=== PATIENT | female | born 1935 | race Caucasian/White ===

== ENCOUNTER 2019-08-01 14:04 | Outpatient (RCR) | payer MEDICARE, OTHER, SELFPAY ==
[2019-05-19 10:43] LABS: Prothrombin Time 22.5 Seconds (11.1-14.7)
[2019-07-01 12:00] LABS: Prothrombin Time 22.1 Seconds (11.1-14.7)
[2019-08-01 14:47] LABS: INR 1.5; Prothrombin Time 17.9 Seconds (11.1-14.7)
== END 2019-08-17 23:59 | disposition home or self-care (01) ==
LOC: ANHLAB 14:04
PROVIDERS: PCP Internal Medicine; Visit Provider Internal Medicine Cardiovascular Disease
DX: Z51.81 Encounter for therapeutic drug level monitoring (principal); I48.91 Unspecified atrial fibrillation; Z79.01 Long term (current) use of anticoagulants
CPT/HCPCS: 36415; 85610

== ENCOUNTER 2019-08-04 12:56 | Outpatient (CLI) | payer MEDICARE, OTHER, SELFPAY ==
--- NOTE | ~2019-08-04 | DEXA_ITS ---
Bone Density Report Name: Sarah Kelly Age: 84 Sex: Female Ethnicity: White Date of : 1935 Indication: postmenopausal osteoporosis; monitoring treatment; parental hip fracture; height loss; hysterectomy; Referring Provider: Tasha Miller Study: Bone densitometry was performed. Exam Date: August 04, 2019 Accession number: [id number] Bone Density: Region BMD T-score Z-score Classification AP Spine (L1-L4) 0.834 -1.9 0.9 Osteopenia Femoral Neck (Left) 0.667 -1.6 0.8 Osteopenia Total Hip (Left) 0.867 -0.6 1.7 Normal Total Hip Bilateral Avg 0.841 -0.8 1.5 Normal Femoral Neck (Right) 0.621 -2.1 0.4 Osteopenia Total Hip (Right) 0.815 -1.0 1.2 Normal World Health Organization criteria for BMD impression classify patients as: Normal (T-score at or above -1.0), Osteopenia (T-score between -1.0 and -2.5), or Osteoporosis (T-score at or below -2.5). 10-year Fracture Risk: FRAX not reported because: Treated for osteoporosis Previous Exams: Region Exam Age BMD T-score BMD Change BMD Change Date g/cm2 vs Baseline vs Previous AP Spine(L1-L4) 08/04/2019 84 0.834 -1.9 0.071(9.3%)# 0.060(7.7%)* 05/14/2015 79 0.774 -2.5 0.011(1.5%)# 0.003(0.4%)# 02/07/2013 77 0.771 -2.5 0.008(1.1%)# 0.004(0.6%)# 10/09/2010 75 0.767 -2.5 0.004(0.5%) 0.025(3.4%)* 10/02/2008 73 0.741 -2.8 -0.021(-2.8%) -0.008(-1.1%) 08/21/2006 71 0.749 -2.7 -0.013(-1.8%) -0.013(-1.8%) 08/02/2004 69 0.763 -2.6 Total Hip(Left) 08/04/2019 84 0.867 -0.6 0.069(8.6%)# 0.044(5.3%)* 05/14/2015 79 0.823 -1.0 0.025(3.1%)# 0.019(2.3%)# 02/07/2013 77 0.805 -1.1 0.006(0.8%)# -0.023(-2.8%)# 10/09/2010 75 0.828 -0.9 0.029(3.7%)* 0.016(2.0%) 10/02/2008 73 0.812 -1.1 0.013(1.7%) -0.006(-0.8%) 08/21/2006 71 0.818 -1.0 0.019(2.4%) 0.019(2.4%) 08/02/2004 69 0.798 -1.2 Total Hip(Right) 08/04/2019 84 0.815 -1.0 0.038(4.9%)# 0.028(3.6%)* 05/14/2015 79 0.787 -1.3 0.010(1.3%)# -0.001(-0.1%)# 02/07/2013 77 0.788 -1.3 0.010(1.3%)# -0.002(-0.2%)# 10/09/2010 75 0.790 -1.2 0.012(1.6%) 0.013(1.7%) 10/02/2008 73 0.776 -1.4 -0.001(-0.2%) 0.014(1.9%) 08/21/2006 71 0.762 -1.5 -0.016(-2.0%) -0.016(-2.0%) 08/02/2004 69 0.778 -1.3 *Denotes significance at 95% confidence level, LSC for AP Spine = 0.022 g/cm2, LSC for Total Hip = 0.027 g/cm2 Clinical Information Provided by Patient: Erica
== END 2019-08-04 12:57 | disposition home or self-care (01) ==
LOC: ANHIMG 13:02
PROVIDERS: PCP Internal Medicine; Visit Provider Nurse Practitioner
DX: M81.0 Age-related osteoporosis without current pathological fracture (principal); M85.89 Other specified disorders of bone density and structure, multiple sites
CPT/HCPCS: 77080

== ENCOUNTER 2019-08-19 12:53 | Outpatient (RCR) | payer MEDICARE, OTHER, SELFPAY ==
[2019-08-19 13:45] LABS: INR 2.3; Prothrombin Time 25.2 Seconds (11.1-14.7)
== END 2019-11-17 23:59 | disposition home or self-care (01) ==
LOC: ANHLAB 12:53
PROVIDERS: PCP Internal Medicine; Visit Provider Internal Medicine Cardiovascular Disease
DX: Z51.81 Encounter for therapeutic drug level monitoring (principal); I48.91 Unspecified atrial fibrillation; Z79.01 Long term (current) use of anticoagulants
CPT/HCPCS: 36415; 85610

== ENCOUNTER 2020-02-01 15:55 | Emergency (ER) | payer MEDICARE, OTHER, SELFPAY ==
--- NOTE | ~2020-02-01 | XR_ITS ---
XR chest 2V 02/01/2020 16:43 Indication: Chest tightness Procedure: 2 view chest Comparison: 02/11/2016 Findings: Heart size normal. No focal air space disease, pulmonary edema, pleural effusion or suspect ed pneumothorax. There is a 7 mm nodular density left upper thorax. Follow-up CT chest recommended on nonemergent basis for further evaluation. Impression: 1: No acute cardiopulmonary disease. 2: Left upper thoracic nodular density measuring 7 mm. Follow-up CT chest recommended on nonemergent basis for further evaluation. Reviewed, dictated and finalized at location A. Impression: 1: No acute cardiopulmonary disease. 2: Left upper thoracic nodular density measuring 7 mm. Follow-up CT chest recom mended on nonemergent basis for further evaluation.
--- NOTE | 2020-02-01 15:56 | ECG_ITS ---
Measurements Intervals [place] Rate: 92 P: [place]: 0 QRS: -21 QRSD: 133 T: 151 QT: 385 QTc: 477 Interpretive Statements ATRIAL FLUTTER/TACHYCARDIA LEFT BUNDLE BRANCH BLOCK BASELINE ARTIFACT- I, II, III, AVR ABNORMAL ECG Electronically Signed On 02-01-2020 16:31:43 CDT by Robb Aaron D.O.
[2020-02-01 15:58] VITALS: BP 149/85; PULSE 84; RESP 18; TEMP 36.9; O2SAT 98
[2020-02-01 16:33] LABS: Basophils Absolute Auto 0.1 K/mm3 (0.0-0.1); Basophils Percent Auto 0.5 % (0.2-1.2); Eosinophils Absolute Auto 0.1 K/mm3 (0-0.3); Eosinophils Percent Auto 0.8 % (0-4.4); Hematocrit 41.4 % (37.0-47.0); Hemoglobin 13.4 g/dL (12.0-15.0); Immature Granulocyte Absolute 0.04 K/mm3 (0.00-0.031); Immature Granulocyte Percent A 0.4 % (0-0.5); Lymphocytes Absolute Auto 1.74 K/mm3 (0.9-3.2); Lymphocytes Percent Auto 18.3 % (18.3-44.2); Mean Corpuscular HGB Conc 32.4 g/dl (32-36); Mean Corpuscular Hemoglobin 30.2 pg (26-34); Mean Corpuscular Volume 93.5 fl (80-100); Mean Platelet Volume 9.5 fl (7.4-10.4); Monocytes Absolute Auto 0.7 K/mm3 (0.1-0.6); Monocytes Percent Auto 7.3 % (2.6-8.5); Neutrophils Absolute Auto 6.9 K/mm3 (1.3-6.7); Neutrophils Percent Auto 72.7 % (45.5-73.1); Platelet Count Result 365 k/mm3 (150-375); Red Blood Count 4.43 M/mm3 (4.2-5.4); Red Cell Distribution Width 13.7 % (11.5-14.5); White Blood Count 9.5 K/mm3 (4.5-10.0)
[2020-02-01 16:42] LABS: INR 2.9; Prothrombin Time 30.1 Seconds (11.1-14.7)
[2020-02-01 16:43] LABS: Partial Thromboplastin Time 49.6 SECONDS (22.3-36.8)
[2020-02-01 16:45] LABS: Blood Urea Nitrogen 14 mg/dL (7-17); Calcium 9.2 mg/dL (8.4-10.2); Carbon Dioxide 30 mmol/L (22-30); Chloride 101 mmol/L (98-107); Estimated CRCL calculation 29 ml/min; Estimated Glomerular Filt Rate 60; Glucose 99 mg/dL (65-105); Sodium 138 mmol/L (137-145)
[2020-02-01 16:51] VITALS: BP 132/77; PULSE 88; RESP 20; O2SAT 98
[2020-02-01 16:57] LABS: Troponin I < 0.012 ng/mL (0.000-0.034)
[2020-02-01 18:05] VITALS: BP 115/86; PULSE 75; RESP 18; O2SAT 99
--- NOTE | 2020-02-01 18:59 | ED.ARRPALP ---
HPI - Arrhythmia/Palpitations General Chief Complaint: Arrhythmia/Palpitations Stated Complaint: rapid heart beat Time Seen by Provider: 02/01/20 16:45 Source: patient and family History of Present Illness HPI narrative: Patient been having palpitation for over 1 week, fast heartbeat, up to 90 bpm, history of atrial fibrillation. Patient denies any lightheadedness, dizziness, chest pain or shortness of breath. Patient believes 90 bpm is too much for her. MD complaint: palpitations Related Data Home Medications Medication Instructions Recorded Confirmed calcium citrate 315 mg-vitamin D3 1 tablet PO BID tablet 07/14/19 250 unit tablet cholecalciferol (vitamin D3) 50 2,000 unit PO DAILY 07/14/19 mcg (2,000 unit) tablet glucosamine-chondroitin 250 mg-200 2 tablet PO BID tablet 07/14/19 mg tablet krill 1,000 mg-omega-3 230 mg-dha 1 cap PO BID cap 07/14/19 60 dk-iko-lcrmoooiy-astaxan capsule latanoprost 0.005 % eye drops 1 drop EACH EYE DAILY 07/14/19 mecobalamin (vitamin B12) 1,000 1,000 mcg SUBLINGUAL DAILY 07/14/19 mcg disintegrating tablet,sublingual metoprolol tartrate 25 mg tablet 12.5 mg PO BID tablet 07/14/19 multivitamin 1 tablet PO DAILY 07/14/19 pyridoxine (vitamin B6) 100 mg 100 mg PO DAILY 07/14/19 tablet vitamin E succinate 400 unit tablet 400 unit PO DAILY 07/14/19 vitamins A,C,K-iuts-vubnsn 7,160 2 tablet PO BID 07/14/19 unit-113 mg-100 unit tablet warfarin 5 mg tablet 5 mg PO 5XW tablet 07/14/19 warfarin 6 mg tablet 6 mg PO 2XW tablet 07/14/19 Allergies Allergy/AdvReac Type Severity Reaction Status Date / Time codeine Allergy Unknown Rash Verified 02/01/20 16:06 ibuprofen AdvReac Unknown Other Verified 02/01/20 16:06 NSAIDS (Non-Steroidal AdvReac Unknown Other Verified 02/01/20 16:06 Anti-Inflamma Review of Systems Review of Systems: Narrative: CONSTITUTIONAL: Denies fever, chills, or sweats. EYES: Denies visual changes, redness, or discharge. ENT: Denies rhinorrhea, congestion, sore throat, or otalgia. CARDIOVASCULAR: Denies chest pain, palpitations, or edema. RESPIRATORY: Denies cough or dyspnea. GASTROINTESTINAL: Denies abdominal pain, nausea, vomiting, or diarrhea. GENITOURINARY: Denies dysuria or hematuria. SKIN: Denies rash or itching. MUSCULOSKELETAL: Denies back pain, joint pain, or myalgia. NEUROLOGIC: Denies headache, numbness, or weakness. PSYCHIATRIC: Denies anxiety or depression. FOR[facility]LY [facility] Past Medical History Medical History Blood clotting disorder 1981 Bone spur Removed from right shoulder 2008 Cataract GERD (gastroesophageal reflux disease) Glaucoma History of measles, mumps, or rubella Osteoarthritis Osteoporosis Surgical History Surgical History H/O breast surgery Lump on left breast removed 1970 H/O thyroidectomy 1991 History of ankle surgery History of partial hysterectomy History of tonsillectomy Family History Family History Father Family history of muscular dystrophy Atrial fibrillation Mother CHF (congestive heart failure) Sibling Osteoporosis Macular degeneration disease Social History Social History Smoking status: Never smoker Alcohol intake: never Gender identity (if verbalized by the patient): Female Exam Narrative: Exam Narrative: General appearance: Well-developed, well-nourished Skin: Normal color Head: Normocephalic, nontraumatic Eyes: Clear conjunctiva ENT: Oropharynx normal, ears normal, nose normal Neck: Supple, nontender Chest and respiratory: Airway patent, no respiratory distress, no accessory muscle use Heart: Regular rate/rhythm Abdomen: Soft, nontender, no organomegaly, quiet bowel sounds Vascular: Normal peripheral pulses, normal capillary refill. Musculoskeletal: Normal ra
[2020-02-01 19:10] VITALS: BP 116/56; PULSE 85; RESP 18; O2SAT 99
== END 2020-02-01 19:11 | disposition home or self-care (01) ==
PROVIDERS: Emergency Provider Emergency Medicine; PCP Internal Medicine
DX: R00.2 Palpitations (principal); F41.9 Anxiety disorder, unspecified; I48.91 Unspecified atrial fibrillation; K21.9 Gastro-esophageal reflux disease without esophagitis; M19.90 Unspecified osteoarthritis, unspecified site; M81.0 Age-related osteoporosis without current pathological fracture
CPT/HCPCS: 36415; 71046; 80048; 84484; 85025; 85610; 85730; 93005; 99284

== ENCOUNTER 2020-03-02 11:40 | Outpatient (RCR) | payer MEDICARE, OTHER, SELFPAY ==
[2020-01-02 12:46] LABS: INR 1.7; Prothrombin Time 19.8 Seconds (11.1-14.7)
[2020-03-02 12:33] LABS: INR 1.2; Prothrombin Time 14.5 Seconds (11.1-14.7)
[2020-03-02 12:35] LABS: Appearance Urine Clear (Clear); Bilirubin Urine Negative (Negative); Color Urine Yellow (Yellow); Glucose Urine UA Negative (Negative); Ketones Urine Negative (Negative); Nitrate Urine Negative (Negative); Protein Urine Negative (Negative); Specific Grav Ur 1.015 (1.001-1.035); Urobilinogen Urine Negative mg/dL (<2.0)
[2020-03-02 12:36] LABS: Add Urine Microscopic? YES; Leukocyte Esterase Ur 1+ LEU/UL (Negative); Squamous Epithelial Cell Urine Many /hpf (Few)
[2020-03-02 12:37] LABS: Blood Urine Negative (Negative)
== END 2020-04-01 23:59 | disposition home or self-care (01) ==
LOC: ANHLAB 11:40
PROVIDERS: PCP Internal Medicine; Visit Provider Internal Medicine Cardiovascular Disease
DX: Z51.81 Encounter for therapeutic drug level monitoring (principal); I48.91 Unspecified atrial fibrillation; N39.0 Urinary tract infection, site not specified; Z79.01 Long term (current) use of anticoagulants
CPT/HCPCS: 36415; 81001; 85610; 87086; 87088

== ENCOUNTER 2020-07-02 13:51 | Outpatient (RCR) | payer MEDICARE, OTHER, SELFPAY ==
[2020-04-13 12:05] LABS: INR 1.8
[2020-04-27 11:02] LABS: INR 2.3; Prothrombin Time 24.5 Seconds (11.1-14.7)
[2020-05-25 12:13] LABS: Prothrombin Time 23.2 Seconds (11.1-14.7)
[2020-07-02 14:53] LABS: INR 2.2; Prothrombin Time 25.2 Seconds (11.1-14.7)
== END 2020-07-12 23:59 | disposition home or self-care (01) ==
LOC: ANHLAB 13:51
PROVIDERS: PCP Internal Medicine; Visit Provider Internal Medicine Cardiovascular Disease
DX: Z51.81 Encounter for therapeutic drug level monitoring (principal); I48.91 Unspecified atrial fibrillation; Z79.01 Long term (current) use of anticoagulants
CPT/HCPCS: 36415; 85610

== ENCOUNTER 2020-10-15 11:43 | Outpatient (RCR) | payer MEDICARE, OTHER, SELFPAY ==
[2020-07-23 11:37] LABS: INR 2.4; Prothrombin Time 26.7 Seconds (11.1-14.7)
[2020-08-17 12:02] LABS: INR 2.7; Prothrombin Time 29.6 Seconds (11.1-14.7)
[2020-09-17 12:47] LABS: INR 2.3; Prothrombin Time 25.9 Seconds (11.1-14.7)
[2020-10-15 13:06] LABS: INR 3.6; Prothrombin Time 36.2 Seconds (11.1-14.7)
== END 2020-10-21 23:59 | disposition home or self-care (01) ==
LOC: ANHLAB 11:43
PROVIDERS: PCP Internal Medicine; Visit Provider Internal Medicine Cardiovascular Disease
DX: Z51.81 Encounter for therapeutic drug level monitoring (principal); I48.91 Unspecified atrial fibrillation; Z79.01 Long term (current) use of anticoagulants
CPT/HCPCS: 36415; 85610

== ENCOUNTER 2021-01-03 11:27 | Outpatient (RCR) | payer MEDICARE, OTHER, SELFPAY ==
[2020-10-22 15:04] LABS: Prothrombin Time 23.5 Seconds (11.1-14.7)
[2020-11-05 12:35] LABS: INR 2.3; Prothrombin Time 25.8 Seconds (11.1-14.7)
[2020-11-27 15:39] LABS: INR 2.1; Prothrombin Time 24.1 Seconds (11.1-14.7)
[2021-01-03 12:11] LABS: INR 2.5; Prothrombin Time 26.7 Seconds (11.1-14.7)
== END 2021-01-20 23:59 | disposition home or self-care (01) ==
LOC: ANHLAB 11:27
PROVIDERS: PCP Internal Medicine; Visit Provider Internal Medicine Cardiovascular Disease
DX: Z51.81 Encounter for therapeutic drug level monitoring (principal); I48.91 Unspecified atrial fibrillation; Z79.01 Long term (current) use of anticoagulants
CPT/HCPCS: 36415; 85610

== ENCOUNTER 2021-02-19 17:07 | Emergency (ER) | payer MEDICARE, OTHER, SELFPAY ==
[2021-02-19 17:13] VITALS: BP 135/61; PULSE 72; RESP 20; TEMP 36.7; O2SAT 97
--- NOTE | 2021-02-19 17:44 | ED.WOUNDLAC ---
HPI - Wound/Laceration General Chief Complaint: Wound/Laceration Stated Complaint: lt hand injury Time Seen by Provider: 02/19/21 17:30 Source: patient and RN notes reviewed Mode of arrival: ambulatory Limitations: no limitations History of Present Illness HPI narrative: 85-year-old female presents with concern for puncture wound to the second digit of the left hand. Reports earlier today she was using a gardening tool when she punctured the finger. Reports a gardening tool had dirt on it. She denies any drainage from the area, reports the bleeding is been controlled since shortly after the incident. She reports she is not up-to-date on her tetanus. She denies any decreased sensation, strength, range of motion in the digit. Denies fever, body aches, streaking. Related Data Home Medications Medication Instructions Recorded Confirmed calcium citrate 315 mg 1 tablet PO BID tablet 07/14/19 09/13/20 calcium-vitamin D3 6.25 mcg (250 unit) tablet cholecalciferol (vitamin D3) 50 2,000 unit PO DAILY 07/14/19 09/13/20 mcg (2,000 unit) tablet glucosamine-chondroitin 250 mg-200 2 tablet PO BID tablet 07/14/19 09/13/20 mg tablet krill 1,000 mg-omega-3 230 mg-dha 1 cap PO BID cap 07/14/19 09/13/20 60 ha-ewa-znazpxnxe-astaxan capsule latanoprost 0.005 % eye drops 1 drop EACH EYE DAILY 07/14/19 09/13/20 mecobalamin (vitamin B12) 1,000 1,000 mcg SUBLINGUAL DAILY 07/14/19 09/13/20 mcg disintegrating tablet,sublingual metoprolol tartrate 25 mg tablet 12.5 mg PO BID tablet 07/14/19 09/13/20 multivitamin 1 tablet PO DAILY 07/14/19 09/13/20 pyridoxine (vitamin B6) 100 mg 100 mg PO DAILY 07/14/19 09/13/20 tablet vitamin E succinate 268 mg (400 400 unit PO DAILY 07/14/19 09/13/20 unit) tablet vitamins A,C,P-vazp-tnbgez 7,160 2 tablet PO BID 07/14/19 09/13/20 unit-113 mg-100 unit tablet warfarin 5 mg tablet 5 mg PO 5XW tablet 09/13/20 09/13/20 warfarin 6 mg tablet 6 mg PO 2XW tablet 09/13/20 09/13/20 Allergies Allergy/AdvReac Type Severity Reaction Status Date / Time codeine Allergy Unknown Rash Verified 02/01/20 16:06 ibuprofen AdvReac Unknown Other Verified 02/01/20 16:06 NSAIDS (Non-Steroidal AdvReac Unknown Other Verified 02/01/20 16:06 Anti-Inflamma Review of Systems Review of Systems: CONSTITUTIONAL: Denies malaise, chills, sweats, or fever. SKIN: Reports puncture wound to the second digit of the left hand MUSCULOSKELETAL: Denies muscle skeletal pain, decreased ROM range of motion, strength, sensation NEUROLOGIC: Denies numbness, weakness All systems reviewed & are unremarkable except as noted in HPI and below PMFSH Past Medical History Medical History (Updated 02/19/21 @ 17:50 by Vonnie Aviles NP) Blood clotting disorder 1981 Bone spur Removed from right shoulder 2008 Cataract GERD (gastroesophageal reflux disease) Glaucoma History of measles, mumps, or rubella Osteoarthritis Osteoporosis Surgical History Surgical History H/O breast surgery Lump on left breast removed 1970 H/O thyroidectomy 1991 History of ankle surgery History of partial hysterectomy History of tonsillectomy Family History Family History Father Family history of muscular dystrophy Atrial fibrillation Mother CHF (congestive heart failure) Sibling Osteoporosis Macular degeneration disease Social History Social History Smoking status: Never smoker Alcohol intake: never Gender identity (if verbalized by the patient): Female Comments At time of signature, agree with nursing past medical, surgical, social and family history. There is no relevant family history pertinent to the presenting complaint Exam Narrative: GENERAL: Well-appearing, well-nourished, and in no acute distress. HEAD: Normocephalic EYES: PERRLA, conjunctivae clear NE
[2021-02-19] MEDS: TETANUS,DIPHTHERIA,AC PERTUSSIS ADULT (0.5 ML) BOOSTRIX IM (17:55)
== END 2021-02-19 17:59 | disposition home or self-care (01) ==
PROVIDERS: Emergency Provider Nurse Practitioner; PCP Internal Medicine
DX: S61.231A Puncture wound without foreign body of left index finger without damage to nail, initial encounter (principal); W27.8XXA Contact with other nonpowered hand tool, initial encounter; Z23 Encounter for immunization; D75.9 Disease of blood and blood-forming organs, unspecified; H26.9 Unspecified cataract; K21.9 Gastro-esophageal reflux disease without esophagitis; H40.9 Unspecified glaucoma; M19.90 Unspecified osteoarthritis, unspecified site; M81.0 Age-related osteoporosis without current pathological fracture
CPT/HCPCS: 90471; 90715; 99213; G0463

== ENCOUNTER 2021-06-24 11:03 | Outpatient (RCR) | payer MEDICARE, OTHER, SELFPAY ==
[2021-03-26 11:26] LABS: INR 3.6; Prothrombin Time 34.9 Seconds (11.1-14.7)
[2021-04-12 10:46] LABS: Prothrombin Time 47.4 Seconds (11.1-14.7)
[2021-04-12 11:21] LABS: INR 5.4
[2021-04-16 17:00] LABS: Prothrombin Time 29.9 Seconds (11.1-14.7)
[2021-04-30 15:14] LABS: INR 2.5; Prothrombin Time 26.3 Seconds (11.1-14.7)
[2021-05-27 12:42] LABS: INR 1.2; Prothrombin Time 15.1 Seconds (11.1-14.7)
[2021-06-03 12:08] LABS: INR 1.8; Prothrombin Time 20.4 Seconds (11.1-14.7)
[2021-06-24 11:58] LABS: Prothrombin Time 22.1 Seconds (11.1-14.7)
== END 2021-06-24 23:59 | disposition home or self-care (01) ==
LOC: ANHLAB 11:03
PROVIDERS: PCP Internal Medicine; Referring Provider Internal Medicine Cardiovascular Disease; Visit Provider Internal Medicine Cardiovascular Disease
DX: Z51.81 Encounter for therapeutic drug level monitoring (principal); I48.91 Unspecified atrial fibrillation; Z79.01 Long term (current) use of anticoagulants
CPT/HCPCS: 36415; 85610

== ENCOUNTER 2021-10-18 10:48 | Outpatient (RCR) | payer MEDICARE, OTHER, SELFPAY ==
[2021-08-26 16:08] LABS: INR 2.2; Prothrombin Time 23.8 Seconds (11.1-14.7)
[2021-09-20 11:13] LABS: INR 2.7; Prothrombin Time 27.5 Seconds (11.1-14.7)
[2021-10-04 10:29] LABS: INR 1.9; Prothrombin Time 21.2 Seconds (11.1-14.7)
[2021-10-18 12:42] LABS: INR 1.2
== END 2021-10-20 23:59 | disposition home or self-care (01) ==
LOC: ANHLAB 10:48
PROVIDERS: PCP Internal Medicine; Visit Provider Internal Medicine Cardiovascular Disease
DX: Z51.81 Encounter for therapeutic drug level monitoring (principal); I48.91 Unspecified atrial fibrillation; Z79.01 Long term (current) use of anticoagulants
CPT/HCPCS: 36415; 85610

== ENCOUNTER 2022-01-17 11:23 | Outpatient (RCR) | payer MEDICARE, OTHER, SELFPAY ==
[2021-10-30 17:30] LABS: INR 1.7; Prothrombin Time 19.6 Seconds (11.1-14.7)
[2021-11-13 17:20] LABS: INR 1.8; Prothrombin Time 19.9 Seconds (11.1-14.7)
[2021-12-19 11:58] LABS: INR 3.6; Prothrombin Time 34.7 Seconds (11.1-14.7)
[2022-01-17 11:59] LABS: INR 2.4; Prothrombin Time 25.1 Seconds (11.1-14.7)
== END 2022-01-28 23:59 | disposition home or self-care (01) ==
LOC: ANHLAB 11:23
PROVIDERS: PCP Internal Medicine; Visit Provider Internal Medicine Cardiovascular Disease
DX: Z51.81 Encounter for therapeutic drug level monitoring (principal); I48.91 Unspecified atrial fibrillation; Z79.01 Long term (current) use of anticoagulants
CPT/HCPCS: 36415; 85610

== ENCOUNTER 2022-07-17 11:27 | Outpatient (RCR) | payer MEDICARE, OTHER, SELFPAY ==
[2022-04-24 11:01] LABS: INR 1.5; Prothrombin Time 17.2 Seconds (11.1-14.7)
[2022-05-15 11:01] LABS: INR 1.9; Prothrombin Time 21.1 Seconds (11.1-14.7)
[2022-06-13 11:42] LABS: INR 2.7; Prothrombin Time 27.5 Seconds (11.1-14.7)
[2022-07-17 12:16] LABS: INR 2.2; Prothrombin Time 24.1 Seconds (11.1-14.7)
== END 2022-07-23 23:59 | disposition home or self-care (01) ==
LOC: ANHLAB 11:27
PROVIDERS: PCP Internal Medicine; Visit Provider Internal Medicine Cardiovascular Disease
DX: Z51.81 Encounter for therapeutic drug level monitoring (principal); I48.92 Unspecified atrial flutter; Z79.01 Long term (current) use of anticoagulants
CPT/HCPCS: 36415; 85610

== ENCOUNTER 2022-08-18 13:16 | Outpatient (CLI) | payer MEDICARE, OTHER, SELFPAY ==
[2022-08-18 14:01] LABS: INR 1.6; Prothrombin Time 18.9 Seconds (11.1-14.7)
== END 2022-08-18 13:17 | disposition home or self-care (01) ==
LOC: ANHLAB 13:18
PROVIDERS: PCP Internal Medicine; Visit Provider Internal Medicine Cardiovascular Disease
DX: Z51.81 Encounter for therapeutic drug level monitoring (principal); Z79.01 Long term (current) use of anticoagulants; I48.92 Unspecified atrial flutter
CPT/HCPCS: 36415; 85610

== ENCOUNTER 2022-11-10 10:03 | Outpatient (RCR) | payer MEDICARE, OTHER, SELFPAY ==
[2022-09-15 10:50] LABS: INR 3.4; Prothrombin Time 33.3 Seconds (11.1-14.7)
[2022-10-17 11:07] LABS: INR 4.2; Prothrombin Time 39.3 Seconds (11.1-14.7)
[2022-10-27 10:44] LABS: INR 3.6; Prothrombin Time 35.1 Seconds (11.1-14.7)
[2022-11-10 10:40] LABS: Prothrombin Time 24.2 Seconds (11.1-14.7)
== END 2022-12-14 23:59 | disposition home or self-care (01) ==
LOC: ANHLAB 10:03
PROVIDERS: PCP Internal Medicine; Visit Provider Internal Medicine Cardiovascular Disease
DX: Z51.81 Encounter for therapeutic drug level monitoring (principal); I48.92 Unspecified atrial flutter; Z79.01 Long term (current) use of anticoagulants
CPT/HCPCS: 36415; 85610

== ENCOUNTER 2022-12-04 09:33 | Outpatient (CLI) | payer MEDICARE, OTHER, SELFPAY ==
[2022-12-04 18:46] LABS: Alanine Aminotransferase 20 U/L (6-35); Alkaline Phosphatase 56 U/L (38-126); Anion Gap 1 mmol/L (8-16); Aspartate Amino Transferase 37 U/L (14-36); Bilirubin,Total 0.7 mg/dL (0.2-1.3); Blood Urea Nitrogen 13 mg/dL (7-17); Calcium 8.5 mg/dL (8.4-10.2); Carbon Dioxide 34 mmol/L (22-30); Chloride 103 mmol/L (98-107); Estimated Glomerular Filt Rate > 60; Glucose 97 mg/dL (65-110); Potassium 4.1 mmol/L (3.4-5.0); Sodium 138 mmol/L (137-145)
[2022-12-04 19:02] LABS: Vitamin D 25 Hydroxy 33.4 ng/mL
[2022-12-04 19:18] LABS: Thyroid Stimulating Hormone 0.745 uIU/mL (0.465-4.680)
[2022-12-04 19:27] LABS: Basophils Percent Auto 0.5 % (0.2-1.2); Eosinophils Absolute Auto 0.1 K/mm3 (0-0.3); Hematocrit 42.5 % (37.0-47.0); Hemoglobin 13.6 g/dL (12.0-15.0); Immature Granulocyte Absolute 0.01 K/mm3 (0.00-0.031); Immature Granulocyte Percent A 0.2 % (0-0.5); Lymphocytes Absolute Auto 1.12 K/mm3 (0.9-3.2); Lymphocytes Percent Auto 18.5 % (18.3-44.2); Mean Corpuscular Hemoglobin 30.4 pg (26-34); Mean Corpuscular Volume 94.9 fl (80-100); Mean Platelet Volume 9.8 fl (7.4-10.4); Monocytes Absolute Auto 0.5 K/mm3 (0.1-0.6); Monocytes Percent Auto 7.4 % (2.6-8.5); Neutrophils Absolute Auto 4.4 K/mm3 (1.3-6.7); Neutrophils Percent Auto 72.4 % (45.5-73.1); Platelet Count Result 237 k/mm3 (150-375); Red Blood Count 4.48 M/mm3 (4.2-5.4); Red Cell Distribution Width 13.3 % (11.5-14.5); White Blood Count 6.1 K/mm3 (4.5-10.0)
== END 2022-12-04 09:34 | disposition home or self-care (01) ==
LOC: ANHGOSHLAB 09:34
PROVIDERS: PCP Internal Medicine; Visit Provider Nurse Practitioner
DX: R41.3 Other amnesia (principal); I48.92 Unspecified atrial flutter
CPT/HCPCS: 36415; 80053; 82306; 82607; 84443; 85025

== ENCOUNTER → 2022-12-11 12:46 | Outpatient (CLI) | payer MEDICARE, OTHER, SELFPAY ==
--- NOTE | ~2022-12-11 | MR_ITS ---
EXAMINATION: MR brain/brain stem wo/w con DATE: 12/11/2022 13:33 INDICATION: Other amnesia. TECHNIQUE: Magnetic resonance imaging (MRI) of the brain and brainstem was performed without and with 10 mL MultiHance intravenous contrast. COMPARISON: Head CT 10/09/2013 FINDINGS: There are scattered areas of nonspecific increased T2-weighted signal intensity in the cere bral white matter. There is no intracranial hemorrhage, acute infarction, or abnormal intracranial ma ss lesion. The ventricles are normal in size. The paranasal sinuses are clear. There are likely lal es of ocular lens replacement surgeries. The mastoid air cells are normal. IMPRESSION: 1. Mild nonspecific cerebral white matter disease, which likely represents chronic small vessel ische destiny disease. Reviewed, dictated and finalized at location A. IMPRESSION: 1. Mild nonspecific cerebral white matter disease, which likely represents lunchroom mother virgilio small vessel ischemic disease.
== END ==
PROVIDERS: PCP Internal Medicine; Visit Provider Nurse Practitioner
DX: R90.82 White matter disease, unspecified (principal); R41.3 Other amnesia
CPT/HCPCS: 70553; A9577

== ENCOUNTER 2023-03-13 10:06 | Outpatient (RCR) | payer MEDICARE, OTHER, SELFPAY ==
[2022-12-15 11:44] LABS: INR 2.5; Prothrombin Time 28.9 Seconds (11.1-14.7)
[2023-01-12 12:24] LABS: INR 2.7; Prothrombin Time 30.6 Seconds (11.1-14.7)
[2023-02-12 11:27] LABS: INR 2.1; Prothrombin Time 25.5 Seconds (11.1-14.7)
[2023-03-13 11:24] LABS: INR 2.2; Prothrombin Time 26.5 Seconds (11.1-14.7)
== END 2023-03-15 23:59 | disposition home or self-care (01) ==
LOC: ANHLAB 10:06
PROVIDERS: PCP Internal Medicine; Visit Provider Internal Medicine Cardiovascular Disease
DX: Z51.81 Encounter for therapeutic drug level monitoring (principal); I48.92 Unspecified atrial flutter; Z79.01 Long term (current) use of anticoagulants
CPT/HCPCS: 36415; 85610

== ENCOUNTER 2023-03-16 08:54 | Outpatient (CLI) | payer MEDICARE, OTHER, SELFPAY ==
--- NOTE | ~2023-03-16 | DEXA_ITS ---
Bone Density Report Name: BRIJESH DE LA FUENTE Age: 87 Sex: Female Ethnicity: White Date of : 1935 Indication: osteopenia; height loss; hysterectomy; rheumatoid arthritis; postmenopausal Referring Provider: BRIANNA CHATMAN Study: Bone densitometry was performed. Exam Date: March 16, 2023 Accession number: [id number] Bone Density: Region BMD T-score Z-score Classification AP Spine(L1-L4) 0.830 -2.0 0.9 Osteopenia Femoral Neck (Left) 0.698 -1.4 1.2 Osteopenia Total Hip (Left) 0.785 -1.3 1.0 Osteopenia Femoral Neck (Right) 0.643 -1.9 0.7 Osteopenia Total Hip (Right) 0.767 -1.4 0.9 Osteopenia Total Hip Mean 0.776 -1.4 1.0 Osteopenia World Health Organization criteria for BMD impression classify patients as: Normal (T-score at or above -1.0), Osteopenia (T-score between -1.0 and -2.5), or Osteoporosis (T-score at or below -2.5). 10-year Fracture Risk(1): Major Osteoporotic Fracture 16% Hip Fracture 5.7% Reported Risk Factors: [place] (), Neck BMD=0.643, BMI=23.0, rheumatoid arthritis (1) FRAX(R) Version 3.08. Fracture probability calculated for an untreated patient. Fracture probability may be lower if the patient has received treatment. Previous Exams: Region Exam Age BMD T-score BMD Change BMD Change Date g/cm2 vs Baseline vs Previous AP Spine (L1-L4) 03/16/2023 87 0.830 -2.0 0.059 (7.7%)# -0.004 (-0.4%) 08/04/2019 84 0.834 -1.9 0.063 (8.1%)# 0.060 (7.7%)* 05/14/2015 79 0.774 -2.5 0.003 (0.4%)# 0.003 (0.4%)# 02/07/2013 77 0.771 -2.5 Total Hip(Left) 03/16/2023 87 0.785 -1.3 -0.020 (-2.5%) -0.082 (-9.5%) 08/04/2019 84 0.867 -0.6 0.062 (7.7%)# 0.044 (5.3%)* 05/14/2015 79 0.823 -1.0 0.019 (2.3%)# 0.019 (2.3%)# 02/07/2013 77 0.805 -1.1 Total Hip(Right) 03/16/2023 87 0.767 -1.4 -0.021 (-2.6%) -0.048 (-5.9%) 08/04/2019 84 0.815 -1.0 0.027 (3.5%)# 0.028 (3.6%)* 05/14/2015 79 0.787 -1.3 -0.001 (-0.1%) -0.001 (-0.1%) 02/07/2013 77 0.788 -1.3 *Denotes significance at 95% confidence level, LSC for AP Spine = 0.022 g/cm2, LSC for Total Hip = 0.027 g/cm2 # Denotes dissimilar scan types or analysis methods Clinical Information Provided by Patient: Has rheumatoid arthritis Has the following medical conditions: Hysterectomy Patient maximum height was 63.4 No regular weight bearing exercise Does not regularly consume dairy products Drinks caffeinated beverages Onset of menses at age 14 Number of children
== END 2023-03-16 08:55 | disposition home or self-care (01) ==
PROVIDERS: PCP Internal Medicine; Visit Provider Nurse Practitioner
DX: Z78.0 Asymptomatic menopausal state (principal); M85.89 Other specified disorders of bone density and structure, multiple sites
CPT/HCPCS: 77080

== ENCOUNTER 2023-07-03 10:17 | Outpatient (RCR) | payer MEDICARE, OTHER, SELFPAY ==
[2023-04-14 12:20] LABS: INR 2.4; Prothrombin Time 27.6 Seconds (11.1-14.7)
[2023-05-18 11:48] LABS: INR 2.1; Prothrombin Time 24.7 Seconds (11.1-14.7)
[2023-06-15 12:24] LABS: INR 1.5; Prothrombin Time 19.4 Seconds (11.1-14.7)
[2023-06-22 11:15] LABS: INR 1.6; Prothrombin Time 20.2 Seconds (11.1-14.7)
[2023-07-03 10:48] LABS: INR 2.4; Prothrombin Time 28.3 Seconds (11.1-14.7)
== END 2023-07-13 23:59 | disposition home or self-care (01) ==
LOC: ANHLAB 10:17
PROVIDERS: PCP Internal Medicine; Visit Provider Internal Medicine Cardiovascular Disease
DX: Z51.81 Encounter for therapeutic drug level monitoring (principal); I48.92 Unspecified atrial flutter; I48.91 Unspecified atrial fibrillation; Z79.01 Long term (current) use of anticoagulants
CPT/HCPCS: 36415; 85610

== ENCOUNTER 2023-07-24 11:09 | Emergency (ER) | payer MEDICARE, OTHER, SELFPAY ==
--- NOTE | ~2023-07-24 | XR_ITS ---
EXAMINATION: XR chest 2V DATE: 07/24/2023 12:08 INDICATION: Palpitations. TECHNIQUE: Frontal and lateral views of the chest were obtained. COMPARISON: Chest 2 views 02/01/2020 FINDINGS: There is mild scarring at the lung apices. Valeria B-lines are noted, consistent with mild p ulmonary edema. No pleural effusion or pneumothorax. The heart size is normal. IMPRESSION: 1. Mild pulmonary edema. 2. Stable mild scarring at the lung apices. Reviewed, dictated and finalized at location E. ANT LEADER
--- NOTE | 2023-07-24 11:10 | ECG_ITS ---
Measurements Intervals [place] Rate: 77 P: [place]: 0 QRS: 31 QRSD: 142 T: 85 QT: 414 QTc: 470 Interpretive Statements ATRIAL FLUTTER/TACHYCARDIA WITH NORMAL VENTRICULAR RESPONSE LEFT BUNDLE BRANCH BLOCK BASELINE ARTIFACT- I, II, III, AVR, AVL, AVF, V1 ABNORMAL ECG COMPARED TO ECG 02/01/2020 16:07:33 NO SIGNIFICANT CHANGES Electronically Signed On 07-24-2023 12:19:18 [employer] by Robb Aaron D.O.
[2023-07-24 11:14] VITALS: BP 134/61; PULSE 87; RESP 18; TEMP 36.4; O2SAT 98
[2023-07-24 11:50] LABS: Basophils Percent Auto 0.4 % (0.2-1.2); Eosinophils Absolute Auto 0.2 K/mm3 (0-0.3); Eosinophils Percent Auto 3.2 % (0-4.4); Hemoglobin 13.2 g/dL (12.0-15.0); Immature Granulocyte Absolute 0.01 K/mm3 (0.00-0.031); Immature Granulocyte Percent A 0.2 % (0-0.5); Lymphocytes Absolute Auto 1.03 K/mm3 (0.9-3.2); Lymphocytes Percent Auto 19.6 % (18.3-44.2); Mean Corpuscular HGB Conc 32.2 g/dl (32-36); Mean Corpuscular Hemoglobin 30.7 pg (26-34); Mean Corpuscular Volume 95.3 fl (80-100); Mean Platelet Volume 9.1 fl (7.4-10.4); Monocytes Absolute Auto 0.4 K/mm3 (0.1-0.6); Monocytes Percent Auto 8.4 % (2.6-8.5); Neutrophils Absolute Auto 3.6 K/mm3 (1.3-6.7); Neutrophils Percent Auto 68.2 % (45.5-73.1); Platelet Count Result 227 k/mm3 (150-375); Red Cell Distribution Width 13.2 % (11.5-14.5); White Blood Count 5.3 K/mm3 (4.5-10.0)
[2023-07-24 12:04] LABS: Alanine Aminotransferase 20 U/L (6-35); Albumin Level 3.9 g/dL (3.5-5.1); Alkaline Phosphatase 56 U/L (38-126); Anion Gap 6 mmol/L (8-16); Aspartate Amino Transferase 30 U/L (14-36); Bilirubin,Total 0.7 mg/dL (0.2-1.3); Blood Urea Nitrogen 12 mg/dL (7-17); Calcium 8.8 mg/dL (8.4-10.2); Carbon Dioxide 32 mmol/L (22-30); Chloride 103 mmol/L (98-107); Estimated CRCL calculation 30 ml/min; Estimated Glomerular Filt Rate > 60; Glucose 118 mg/dL (65-110); Lipase 54 U/L (23-300); Potassium 3.8 mmol/L (3.4-5.0); Sodium 141 mmol/L (137-145)
[2023-07-24 12:06] LABS: INR 2.2; Prothrombin Time 26.2 Seconds (11.1-14.7)
[2023-07-24 12:07] LABS: Partial Thromboplastin Time 48.3 SECONDS (22.3-36.8)
[2023-07-24 12:15] LABS: Troponin I < 0.012 ng/mL (0.000-0.034)
--- NOTE | 2023-07-24 15:58 | ED.ARRPALP ---
HPI - Arrhythmia/Palpitations General Chief Complaint: Arrhythmia/Palpitations Stated Complaint: my heart is racing Time Seen by Provider: 07/24/23 15:53 History of Present Illness HPI narrative: Patient is an 88 year old female with history of afib, here with palpitations and light headedness. Patient notes that yesterday she did laundry and cleaned the house and began feeling palpitations. She lives at home with her daughter. She notes that the palpitations lasted much longer than they normally do and continued today. She notes that it feels like her heart is racing and is associated with some light headedness. She denies any chest pain, shortness of breath, cough, congestion, fever, chills, urinary symptoms. She follows with Dr. Huerta from cardiology, she is unsure if she is persistently in afib, has never required cardioversion in the past. She denies history of CHF, does not take any diuretics. Related Data Home Medications Medication Instructions Recorded Confirmed calcium citrate 315 mg 1 tablet PO BID 07/14/19 06/11/23 calcium-vitamin D3 6.25 mcg (250 unit) tablet (Citracal + Vitamin D Maximum) cholecalciferol (vitamin D3) 50 2,000 unit PO DAILY 07/14/19 06/11/23 mcg (2,000 unit) tablet latanoprost 0.005 % eye drops 1 drop ophthalmic (eye) DAILY 07/14/19 06/11/23 metoprolol tartrate 25 mg tablet 12.5 mg PO BID 07/14/19 06/11/23 multivitamin 1 tablet PO DAILY 07/14/19 06/11/23 warfarin 2 mg tablet 2 mg PO .once weekly 12/04/22 06/11/23 warfarin 4 mg tablet 4 mg PO .6xweek 12/04/22 06/11/23 vitamins A,C,D-yhfu-mlnezx 2,148 1 tablet PO DAILY 03/05/23 06/11/23 mcg-113 mg-45 mg-17.4 mg tablet (PreserVision AREDS) Allergies Allergy/AdvReac Type Severity Reaction Status Date / Time codeine Allergy Unknown Rash Verified 07/24/23 11:10 ibuprofen AdvReac Unknown Other Verified 07/24/23 11:10 NSAIDS (Non-Steroidal AdvReac Unknown Other Verified 07/24/23 11:10 Anti-Inflamma Review of Systems Review of Systems: All systems reviewed & are unremarkable except as noted in HPI and below PMFSH Past Medical History Medical History Blood clotting disorder 1982 Bone spur Removed from right shoulder 2008 Cataract GERD (gastroesophageal reflux disease) Glaucoma History of measles, mumps, or rubella Osteoarthritis Osteoporosis Surgical History Surgical History H/O breast surgery Lump on left breast removed 1970 H/O thyroidectomy 1991 History of ankle surgery History of partial hysterectomy History of tonsillectomy Family History Family History Father Family history of muscular dystrophy Atrial fibrillation Mother CHF (congestive heart failure) Sibling Osteoporosis Macular degeneration disease Social History Social History Smoking status: Never smoker Alcohol intake: never Lack of Transportation: No Lack of Food: Never True Current Housing: I Have Housing Concerned About Future Housing: No Difficulty Paying Gas/Electric Bills: No Difficulty Paying for Meds: No Currently Unemployed: No Education: High School Diploma/GED Difficulty w/ Childcare or Family Care: No Gender identity (if verbalized by the patient): Female Exam Narrative: GENERAL: Well-appearing, well-nourished, and in no acute distress. HEAD: Normocephalic, atraumatic. EYES: PERRLA and EOMI. ENT: Nares clear. Mucous membranes moist. NECK: Supple. CHEST: Clear to auscultation. No respiratory distress. HEART: Irregularly irregular. Normal peripheral pulses. ABDOMEN: Soft, nontender, nondistended. EXTREMITIES: Normal range of motion. No edema. SKIN: Warm, dry, no rash. NEURO: No focal deficits. Alert and oriented x3. PSYCH: Normal mood and affect. Course Course Emergenc
[2023-07-24 16:10] LABS: Troponin I < 0.012 ng/mL (0.000-0.034)
[2023-07-24 17:12] LABS: Magnesium 2.3 mg/dL (1.6-2.3)
[2023-07-24] MEDS: SODIUM CHLORIDE 0.9% IV 500 ML 999 ML IV CONT (17:25)
[2023-07-24 17:26] LABS: Troponin I < 0.012 ng/mL (0.000-0.034)
[2023-07-24 17:32] LABS: Influenza A QL RT-PCR Negative (Negative); Influenza B QL RT-PCR Negative (Negative); RSV RNA, RT-PCR Negative (Negative); SARS-CoV-2 RNA PCR Negative (Negative)
[2023-07-24 19:54] LABS: Appearance Urine Clear (Clear); Bacteria Urine 4+ /hpf; Bilirubin Urine Negative (Negative); Blood Urine Trace (Negative); Color Urine Yellow (Yellow); Glucose Urine UA Negative (Negative); Ketones Urine Trace mg/dL (Negative); Leukocyte Esterase Ur 2+ LEU/UL (Negative); Nitrate Urine Positive (Negative); Non Pathogenic Casts 0-2; Protein Urine Negative (Negative); RBC Urine 0-2 /hpf (0-2); Specific Grav Ur 1.008 (1.001-1.035); Squamous Epithelial Cell Urine None seen /hpf (Few); Urobilinogen Urine 0.2 mg/dL (<2.0); WBC Urine 21-50 /hpf; pH Urine 6.5 (5.0-9.0)
[2023-07-24 19:58] LABS: Add Urine Microscopic? YES
[2023-07-24 21:57] VITALS: BP 150/76; PULSE 84; RESP 15; O2SAT 98
--- NOTE | 2023-07-26 07:37 | ECG_ITS ---
Measurements Intervals [place] Rate: 83 P: [place]: 0 QRS: 12 QRSD: 134 T: 83 QT: 410 QTc: 483 Interpretive Statements ATRIAL FLUTTER/TACHYCARDIA WITH NORMAL VENTRICULAR RESPONSE LEFT BUNDLE BRANCH BLOCK BASELINE ARTIFACT- I, II, III, AVR, AVL, AVF, V1 ABNORMAL ECG COMPARED TO ECG 07/24/2023 11:21:55 NO SIGNIFICANT CHANGES Electronically Signed On 07-26-2023 7:48:45 [address] by Robb Aaron D.O.
== END 2023-07-24 21:59 | disposition home or self-care (01) ==
PROVIDERS: Emergency Medicine; Emergency Provider Student in an Organized Health Care Education/Training Program; PCP Internal Medicine
DX: I48.0 Paroxysmal atrial fibrillation (principal); N39.0 Urinary tract infection, site not specified; R00.2 Palpitations; Z20.822 Contact with and (suspected) exposure to COVID-19; E89.0 Postprocedural hypothyroidism; K21.9 Gastro-esophageal reflux disease without esophagitis; M19.90 Unspecified osteoarthritis, unspecified site; M81.0 Age-related osteoporosis without current pathological fracture; H40.9 Unspecified glaucoma; D68.9 Coagulation defect, unspecified; Z79.01 Long term (current) use of anticoagulants; Z90.711 Acquired absence of uterus with remaining cervical stump; I44.7 Left bundle-branch block, unspecified; R00.0 Tachycardia, unspecified
CPT/HCPCS: 36415; 71046; 80053; 81001; 83690; 83735; 84443; 84484; 85025; 85610; 85730; 87077; 87086; 87186; 87637; 93005; 96361; 96365; 99284; J0696; J7040

== ENCOUNTER 2023-08-10 10:19 | Outpatient (CLI) | payer MEDICARE, OTHER, SELFPAY ==
[2023-08-10 18:29] LABS: Appearance Urine Clear (Clear); Bacteria Urine None Seen /hpf; Bilirubin Urine Negative (Negative); Blood Urine Negative (Negative); Color Urine Yellow (Yellow); Glucose Urine UA Negative (Negative); Ketones Urine Negative (Negative); Leukocyte Esterase Ur Trace LEU/UL (Negative); Need Manual Microscopic Reviewed; Nitrate Urine Negative (Negative); Non Pathogenic Casts 0-2; Protein Urine Negative (Negative); RBC Urine 0-2 /hpf (0-2); Specific Grav Ur 1.008 (1.001-1.035); Squamous Epithelial Cell Urine Occasional /hpf (Few); Urobilinogen Urine 0.2 mg/dL (<2.0); WBC Urine 0-5 /hpf
[2023-08-10 18:40] LABS: Add Urine Microscopic? YES
== END 2023-08-10 10:20 | disposition home or self-care (01) ==
LOC: ANHGOSHLAB 10:21
PROVIDERS: PCP Internal Medicine; Visit Provider Nurse Practitioner
DX: N39.0 Urinary tract infection, site not specified (principal)
CPT/HCPCS: 81001

== ENCOUNTER 2023-09-28 10:00 | Outpatient (RCR) | payer MEDICARE, OTHER, SELFPAY ==
[2023-08-10 13:53] LABS: INR 1.6; Prothrombin Time 19.8 Seconds (11.1-14.7)
[2023-09-07 19:09] LABS: INR 1.5; Prothrombin Time 19.2 Seconds (11.1-14.7)
[2023-09-28 13:58] LABS: INR 2.5; Prothrombin Time 28.4 Seconds (11.1-14.7)
== END 2023-11-08 23:59 | disposition home or self-care (01) ==
LOC: ANHGOSHLAB 10:00
PROVIDERS: PCP Internal Medicine; Visit Provider Internal Medicine Cardiovascular Disease
DX: Z51.81 Encounter for therapeutic drug level monitoring (principal); I48.91 Unspecified atrial fibrillation; I48.92 Unspecified atrial flutter; Z79.01 Long term (current) use of anticoagulants
CPT/HCPCS: 36415; 81001; 85610

== ENCOUNTER 2024-01-04 10:39 | Outpatient (CLI) | payer MEDICARE, OTHER, SELFPAY ==
[2024-01-04 19:42] LABS: Basophils Percent Auto 0.6 % (0.2-1.2); Eosinophils Absolute Auto 0.1 K/mm3 (0-0.3); Eosinophils Percent Auto 1.1 % (0-4.4); Hematocrit 40.8 % (37.0-47.0); Immature Granulocyte Absolute 0.01 K/mm3 (0.00-0.031); Immature Granulocyte Percent A 0.2 % (0-0.5); Lymphocytes Absolute Auto 1.22 K/mm3 (0.9-3.2); Lymphocytes Percent Auto 22.9 % (18.3-44.2); Mean Corpuscular HGB Conc 31.9 g/dl (32-36); Mean Corpuscular Hemoglobin 30.9 pg (26-34); Mean Corpuscular Volume 96.9 fl (80-100); Mean Platelet Volume 9.8 fl (7.4-10.4); Monocytes Absolute Auto 0.4 K/mm3 (0.1-0.6); Monocytes Percent Auto 8.1 % (2.6-8.5); Neutrophils Absolute Auto 3.6 K/mm3 (1.3-6.7); Neutrophils Percent Auto 67.1 % (45.5-73.1); Platelet Count Result 224 k/mm3 (150-375); Red Blood Count 4.21 M/mm3 (4.2-5.4); Red Cell Distribution Width 13.5 % (11.5-14.5); White Blood Count 5.3 K/mm3 (4.5-10.0)
[2024-01-04 20:09] LABS: Vitamin D 25 Hydroxy 64.7 ng/mL
[2024-01-04 20:30] LABS: Alanine Aminotransferase 19 U/L (6-35); Albumin Level 4.1 g/dL (3.5-5.1); Alkaline Phosphatase 54 U/L (38-126); Anion Gap 3 mmol/L (4-12); Aspartate Amino Transferase 37 U/L (14-36); Bilirubin,Total 0.9 mg/dL (0.2-1.3); Blood Urea Nitrogen 14 mg/dL (7-17); Calcium 8.8 mg/dL (8.4-10.2); Carbon Dioxide 33 mmol/L (22-30); Chloride 104 mmol/L (98-107); Estimated Glomerular Filt Rate > 60; Glucose 105 mg/dL (65-110); Sodium 140 mmol/L (137-145)
== END 2024-01-04 10:40 | disposition home or self-care (01) ==
LOC: ANHGOSHLAB 10:41
PROVIDERS: PCP Internal Medicine; Visit Provider Nurse Practitioner
DX: I48.92 Unspecified atrial flutter (principal); E55.9 Vitamin D deficiency, unspecified
CPT/HCPCS: 36415; 80053; 82306; 85025; 85610

== ENCOUNTER 2024-02-04 09:35 | Outpatient (RCR) | payer MEDICARE, OTHER, SELFPAY ==
[2023-11-23 13:34] LABS: INR 1.8; Prothrombin Time 22.2 Seconds (11.1-14.7)
[2023-12-08 20:19] LABS: Prothrombin Time 23.1 Seconds (11.1-14.7)
[2024-01-04 20:00] LABS: INR 1.8; Prothrombin Time 21.6 Seconds (11.1-14.7)
[2024-02-04 19:14] LABS: INR 1.8; Prothrombin Time 21.7 Seconds (11.1-14.7)
== END 2024-02-21 23:59 | disposition home or self-care (01) ==
LOC: ANHGOSHLAB 09:35
PROVIDERS: PCP Internal Medicine; Visit Provider Internal Medicine Cardiovascular Disease
DX: Z51.81 Encounter for therapeutic drug level monitoring (principal); I48.91 Unspecified atrial fibrillation; I48.92 Unspecified atrial flutter; Z79.01 Long term (current) use of anticoagulants
CPT/HCPCS: 36415; 85610

== ENCOUNTER 2024-05-25 15:10 | Emergency (ER) | payer MEDICARE, OTHER, SELFPAY ==
--- NOTE | ~2024-05-25 | XR_ITS ---
EXAMINATION: XR elbow LT min 3V DATE: 05/25/2024 18:27 INDICATION: Left upper arm pain. TECHNIQUE: 4 views of left elbow were obtained. COMPARISON: None. FINDINGS: Alignment is normal. No fracture. Joint spaces are normal. No elbow joint effusion. IMPRESSION: 1. No fracture. Reviewed, dictated and finalized at location A. PRINTER APPRENTICE IMPRESSION: 1. No fracture.
--- NOTE | ~2024-05-25 | XR_ITS ---
EXAMINATION: XR humerus LT DATE: 05/25/2024 18:27 INDICATION: Left upper arm pain and swelling. TECHNIQUE: 2 views of left humerus on 3 radiographs were obtained. COMPARISON: None. FINDINGS: Alignment is normal. No fracture. There is severe osteoarthritis of acromioclavicular joint . IMPRESSION: 1. No fracture. Reviewed, dictated and finalized at location A. HOP ARTIST IMPRESSION: 1. No fracture.
--- NOTE | ~2024-05-25 | XR_ITS ---
EXAMINATION: XR shoulder LT min 2V DATE: 05/25/2024 18:27 INDICATION: Left upper arm pain and swelling. TECHNIQUE: 5 views of left shoulder were obtained. COMPARISON: None. FINDINGS: Alignment is normal. No fracture. There is mild osteoarthritis of glenohumeral joint and se roberto osteoarthritis of acromioclavicular joint. IMPRESSION: 1. Polyarticular osteoarthritis. Reviewed, dictated and finalized at location A. MEASUREMENT ENGINEER
[2024-05-25 15:18] VITALS: BP 172/95; PULSE 42; RESP 18; TEMP 36.4; O2SAT 97
--- NOTE | 2024-05-25 18:10 | ED_ITS ---
HPI - Extremity Injury (Upper) General Chief Complaint: Extremity Injury, Upper <Kamila Carbone APRN - Last Filed: 05/25/24 18:16> Stated Complaint: upper extremity <Kamila Ravi Carbone APRN - Last Filed: 05/25/24 18:16> Time Seen by Provider: 05/25/24 18:00 <Kamila Carbone APRN - Last Filed: 05/25/24 18:16> Focused HPI: Patient is an 88-year-old female who presents to the ER with left upper arm pain. She reports she 1st noticed it this afternoon, probably around 2:00 p.m. Patient reports it started with pain, then she noticed the swelling. She denies any recent illness, fevers, known injury. Patient denies any medical history although her chart indicates a history of high blood pressure and she is on blood thinners. She reports pain does not change with manipulation or movement. GENERAL: Well-appearing, well-nourished, and in no acute distress. HEAD: Normocephalic, atraumatic. CHEST: Clear to auscultation. ?No respiratory distress. HEART: bradycardia, regular rhythm.? NEURO: ?Alert and oriented x3, able to move L upper extremity, reports no pain increase or decrease with manipulation but pain remains constant Patient screened in triage and initial orders placed.? ?Additional care and disposition to be based upon?diagnostic testing and treatment. <Kamila Carbone APRN - Last Filed: 05/25/24 18:16> Source: patient <Christopher Gupta PA-C - Last Filed: 05/26/24 01:05> Mode of arrival: ambulatory <Christopher Gupta PA-C - Last Filed: 05/26/24 01:05> Limitations: no limitations <Christopher Gupta PA-C - Last Filed: 05/26/24 01:05> History of Present Illness HPI narrative: Agree with triage note above <Christopher Gupta PA-C - Last Filed: 05/26/24 01:05> Related Data Home Medications: Home Medications Medication Instructions Recorded Confirmed calcium 315 mg (as 1 tablet PO BID 07/14/19 12/10/23 citrate)-vitamin D3 6.25 mcg (250 unit) tablet (Citracal + Vitamin D Maximum) cholecalciferol (vitamin D3) 50 2,000 unit PO DAILY 07/14/19 12/10/23 mcg (2,000 unit) tablet latanoprost 0.005 % eye drops 1 drop ophthalmic (eye) DAILY 07/14/19 12/10/23 metoprolol tartrate 25 mg tablet 12.5 mg PO BID 07/14/19 12/10/23 multivitamin 1 tablet PO DAILY 07/14/19 12/10/23 warfarin 4 mg tablet 4 mg PO .6xweek 12/04/22 12/10/23 vitamins A,C,V-qupt-nzyqwn 2,148 1 tablet PO DAILY 03/05/23 12/10/23 mcg-113 mg-45 mg-17.4 mg tablet (PreserVision AREDS) quetiapine 25 mg tablet 12.5 mg PO QHS 12/10/23 12/10/23 <Kamila Carbone APRN - Last Filed: 05/25/24 18:16> Allergies/Adverse Reactions: Allergies Allergy/AdvReac Type Severity Reaction Status Date / Time codeine Allergy Unknown Rash Verified 12/10/23 08:04 ibuprofen AdvReac Unknown Other Verified 12/10/23 08:04 NSAIDS (Non-Steroidal AdvReac Unknown Other Verified 12/10/23 08:04 Anti-Inflamma <Kamila Carbone APRN - Last Filed: 05/25/24 18:16> Review of Systems Review of Systems: All systems as dictated in HPI <Christopher Gupta PA-C - Last Filed: 05/26/24 01:05> [facility] Past Medical History Medical History: Medical History Blood clotting disorder 1981 Bone spur Removed from right shoulder 2008 Cataract GERD (gastroesophageal reflux disease) Glaucoma History of measles, mumps, or rubella Osteoarthritis Osteoporosis <Kamila Carbone APRN - Last Filed: 05/25/24 18:16> Surgical History Surgical History: Surgical History H/O breast surgery Lump on left breast removed 1970 H/O thyroidectomy 1992 History of ankle surgery History of partial hysterectomy History of tonsillectomy <Kamila Carbone APRN - Last Filed: 05/25/24 18:16> Family History Family History: Family History Father Family history of muscular dystrophy Atrial fibrillation Mother CHF (congestive heart failure) Sibling Osteoporosis Macular degeneration disease <Kamila Carbone APRN - Last Filed: 05/25/24 18:16> Social History Social History: Social History Social History: caffeine- half a bottle of coke once a day Smoking status: Never smoker Alcohol intake: never Substance use: never Substance use type: does not use Lack of Transportation: No Lack of Food: Never True Current Housing: I Have Housing Concerned About Future Housing: No Difficulty Paying Gas/Electric Bills: No Difficulty Paying for Meds: No Currently Unemployed: No Education: High School Diploma/GED Difficulty w/ Childcare or Family Care: No Gender identity (if verbalized by the patient): Female <Kamila Carbone, HEADMASTER/MISTRESS - Last Filed: 05/25/24 18:16> Exam Narrative: GENERAL: Well-appearing, well-nourished, and in no acute distress. MSK: LUE: Mild tenderness to the left proximal biceps. No bruising. No gross deformity. Full range of motion and full strength of the biceps is present. RUE: Benign SKIN: Warm, dry, no rash. NEURO: Alert and oriented x4. No focal deficits. PSYCH: Normal mood and affect. <Christopher Gupta PA-C - Last Filed: 05/26/24 01:05> Course Vital Signs Vital signs: Vital Signs Temperature 97.6 F 05/25/24 15:18 Pulse Rate 42 L 05/25/24 15:18 Respiratory Rate 18 05/25/24 15:18 Blood Pressure 172/95 H 05/25/24 15:18 Pulse Oximetry 97 05/25/24 15:18 Oxygen Delivery Room Air 05/25/24 15:18 Temperature 97.6 F 05/25/24 15:18 Pulse Rate 63 05/25/24 19:14 Respiratory Rate 18 05/25/24 19:14 Blood Pressure 113/78 05/25/24 19:14 Pulse Oximetry 96 05/25/24 19:14 Oxygen Delivery Room Air 05/25/24 15:18 <Kamila Carbone APRN - Last Filed: 05/25/24 18:16> Vital Signs Temperature 97.6 F 05/25/24 15:18 Pulse Rate 42 L 05/25/24 15:18 Respiratory Rate 18 05/25/24 15:18 Blood Pressure 172/95 H 05/25/24 15:18 Pulse Oximetry 97 05/25/24 15:18 Oxygen Delivery Room Air 05/25/24 15:18 Temperature 97.6 F 05/25/24 15:18 Pulse Rate 63 05/25/24 19:14 Respiratory Rate 18 05/25/24 19:14 Blood Pressure 113/78 05/25/24 19:14 Pulse Oximetry 96 05/25/24 19:14 Oxygen Delivery Room Air 05/25/24 15:18 <Christopher Gupta PA-C - Last Filed: 05/26/24 01:05> MDM - Extremity Injury (Upper) MDM Narrative Medical decision making narrative: 88-year-old female presenting for left biceps pain after throwing a 10 can today. Vitals are normal. Exam remarkable for musculoskeletal strain. No deformities or bruising. X-rays do not show any acute osseous findings. Patient was given sling for comfort for biceps strain. Pt will be discharged in stable condition. Return precautions given and supportive measures discussed. Pt is understanding and agreeable with plan for discharge and follow-up with PCP. <Christopher Gupta PA-C - Last Filed: 05/26/24 01:05> Discharge Plan Discharge Clinical Impression: Strain of left biceps <Kamila Carbone APRN - Last Filed: 05/25/24 18:16> Patient Disposition: Home, Self-Care <Kamila Carbone APRN - Last Filed: 05/25/24 18:16> Condition: Stable <Kamila Carbone APRN - Last Filed: 05/25/24 18:16> Instructions: Antibiotic Form <Kamila Carbone APRN - Last Filed: 05/25/24 18:16> Additional Instructions: Exam today shows strain of the left biceps muscles. No acute findings on the x-rays. Take your normal pain medications as prescribed and follow-up with PCP. If you have any new or worsening symptoms please return to the ER for further evaluation. <Kamila Carbone APRN - Last Filed: 05/25/24 18:16> Prescriptions: No Action latanoprost 0.005 % drops 1 drop EACH EYE DAILY metoprolol tartrate 25 mg tablet 12.5 mg PO BID cholecalciferol (vitamin D3) 2,000 unit tablet 2,000 unit PO DAILY calcium citrate-vitamin D3 [Citracal + D Maximum] 315 mg- 250 unit tablet 1 tablet PO BID multivitamin Tablet 1 tablet PO DAILY warfarin 4 mg tablet 4 mg PO .6xweek quetiapine 25 mg tablet 12.5 mg PO QHS PreserVision AREDS 2,148 mcg-113 mg-45 mg-17.4mg tablet 1 tablet PO DAILY lisinopril 5 mg tablet 5 mg PO DAILY Qty: 90 1RF <Kamila Carbone APRN - Last Filed: 05/25/24 18:16> Follow-up/Referrals: Osman Oneil, DO [Primary Care Provider] - <Kamila Carbone APRN - Last Filed: 05/25/24 18:16> Time of Disposition: 19:28 <Kamila Carbone APRN - Last Filed: 05/25/24 18:16> 19:28 <Christopher Gupta PA-C - Last Filed: 05/26/24 01:05>
[2024-05-25 19:14] VITALS: BP 113/78; PULSE 63; RESP 18; O2SAT 96
== END 2024-05-25 19:38 | disposition home or self-care (01) ==
PROVIDERS: Emergency Provider Physician Assistant; PCP Internal Medicine
DX: S46.212A Strain of muscle, fascia and tendon of other parts of biceps, left arm, initial encounter (principal); K21.9 Gastro-esophageal reflux disease without esophagitis; M19.90 Unspecified osteoarthritis, unspecified site; Z79.01 Long term (current) use of anticoagulants; X50.0XXA Overexertion from strenuous movement or load, initial encounter
CPT/HCPCS: 73030; 73060; 73080; 99284; A4565

== ENCOUNTER 2024-06-24 08:55 | Outpatient (RCR) | payer MEDICARE, OTHER, SELFPAY ==
[2024-03-28 15:48] LABS: INR 4.1; Prothrombin Time 39.7 Seconds (11.1-14.7)
[2024-04-14 14:18] LABS: INR 2.2
[2024-05-23 20:10] LABS: Prothrombin Time 23.4 Seconds (11.1-14.7)
[2024-06-24 18:18] LABS: INR 1.9; Prothrombin Time 22.6 Seconds (11.1-14.7)
== END 2024-06-26 23:59 | disposition home or self-care (01) ==
LOC: ANHGOSHLAB 08:55
PROVIDERS: PCP Internal Medicine; Visit Provider Internal Medicine Cardiovascular Disease
DX: I48.92 Unspecified atrial flutter (principal); I48.91 Unspecified atrial fibrillation; Z79.01 Long term (current) use of anticoagulants
CPT/HCPCS: 36415; 85610

== ENCOUNTER 2024-09-03 20:56 | Emergency (ER) | payer MEDICARE, OTHER, SELFPAY ==
[2024-09-03 20:58] VITALS: BP 134/64; PULSE 70; RESP 16; TEMP 36.3; O2SAT 98
--- NOTE | 2024-09-04 00:04 | ED.FALL ---
HPI - Fall General Chief Complaint: Extremity Injury, Upper Stated Complaint: L elbow pain from glf Time Seen by Provider: 09/03/24 23:00 Source: patient and family Mode of arrival: ambulatory Limitations: no limitations History of Present Illness HPI Narrative: This is a 89 year old female that presents to the ER for a fall today with head injury. Reports falling onto her left elbow and hip. Reports hitting her head. No loss of consciousness. Reports left elbow, shoulder, hip pain. She does take Warfarin. Denies focal numbness, weakness. Related Data Home Medications ?Medication ?Instructions ?Recorded ?Confirmed ?Last Taken ?Type calcium 315 mg (as 1 tablet PO BID 07/14/19 06/16/24 Unknown History citrate)-vitamin D3 6.25 mcg (250 unit) tablet (Citracal + Vitamin D Maximum) cholecalciferol (vitamin D3) 50 2,000 unit PO DAILY 07/14/19 06/16/24 Unknown History mcg (2,000 unit) tablet latanoprost 0.005 % eye drops 1 drop ophthalmic (eye) DAILY 07/14/19 06/16/24 Unknown History metoprolol tartrate 25 mg tablet 12.5 mg PO BID 07/14/19 06/16/24 02/01/20 History multivitamin 1 tablet PO DAILY 07/14/19 06/16/24 Unknown History warfarin 4 mg tablet 4 mg PO .6xweek 12/04/22 06/16/24 Unknown History vitamins A,C,G-pivd-ysmsjv 2,148 1 tablet PO DAILY 03/05/23 06/16/24 Unknown History mcg-113 mg-45 mg-17.4 mg tablet (PreserVision AREDS) quetiapine 25 mg tablet 12.5 mg PO QHS 12/10/23 06/16/24 Unknown History Allergies Allergy/AdvReac Type Severity Reaction Status Date / Time codeine Allergy Unknown Rash Verified 09/03/24 20:58 ibuprofen AdvReac Unknown Other Verified 09/03/24 20:58 NSAIDS (Non-Steroidal AdvReac Unknown Other Verified 09/03/24 20:58 Anti-Inflamma Review of Systems Review of Systems: CONSTITUTIONAL: Denies fever GASTROINTESTINAL: Denies vomiting MUSCULOSKELETAL: Reports joint pain, and myalgia. NEUROLOGIC: Denies numbness, or weakness. All systems reviewed & are unremarkable except as noted in HPI and below PMFSH Past Medical History Medical History Blood clotting disorder 1982 Bone spur Removed from right shoulder 2008 Cataract GERD (gastroesophageal reflux disease) Glaucoma History of measles, mumps, or rubella Osteoarthritis Osteoporosis Surgical History Surgical History History of ankle surgery H/O thyroidectomy 1991 H/O breast surgery Lump on left breast removed 1971 History of partial hysterectomy History of tonsillectomy Family History Family History Father Family history of muscular dystrophy Atrial fibrillation Mother CHF (congestive heart failure) Sibling Osteoporosis Macular degeneration disease Social History Social History Social History: caffeine- half a bottle of coke once a day Smoking status: Never smoker Alcohol intake: never Substance use: never Substance use type: does not use Lack of Transportation: No Lack of Food: Never True Current Housing: I Have Housing Concerned About Future Housing: No Difficulty Paying Gas/Electric Bills: No Difficulty Paying for Meds: No Currently Unemployed: No Education: High School Diploma/GED Difficulty w/ Childcare or Family Care: No Gender identity (if verbalized by the patient): Female Exam Narrative: GENERAL: Elderly, well-nourished, and in no acute distress. HEAD: Normocephalic, atraumatic. EYES: PERRLA and EOMI. ENT: Nares clear, no rhinorrhea or epistaxis. Mucous membranes moist. Oropharynx without tonsillar hypertrophy exudate or other lesions. Bilateral TMs pearly arguelles non-bulging NECK: Supple. No adenopathy or masses. CHEST: Clear to auscultation. No respiratory distress. No wheezes rales or rhonchi HEART: Regular rate and rhythm. No murmur heard. Normal peripheral pulses. BACK: No midline spinal tenderness EXTREMITIES: Normal range of motion. No edema or obvious deformity. SKIN: Warm, dry, no rash. NEURO: No focal deficits. Alert and oriented x3. CN II-XII grossly intact. Normal gait PSYCH: Normal mood and affect Course Course Emergency Course: patient and family updated on workup and agree with plan of care Vital Signs Vital signs: Vital Signs Temperature 97.3 F L 09/03/24 20:58 Pulse Rate 70 09/03/24 20:58 Respiratory Rate 16 09/03/24 20:58 Blood Pressure 134/64 09/03/24 20:58 Pulse Oximetry 98 09/03/24 20:58 Oxygen Delivery Room Air 09/03/24 20:58 Temperature 99.1 F 09/04/24 00:52 Pulse Rate 80 09/04/24 00:52 Respiratory Rate 16 09/04/24 00:52 Blood Pressure 125/70 09/04/24 00:52 Pulse Oximetry 98 09/04/24 00:52 Oxygen Delivery Room Air 09/03/24 20:58 MDM - Fall MDM Narrative Medical decision making narrative: Patient presents to the ER after a fall today with head injury. She is neurologically intact. Her vitals are stable. CT brain, cervical spine without acute findings. Left shoulder, elbow, hip, chest x-ray without acute findings. Patient and family updated on her workup. She is to follow up with PCP. She was given warnings to return to the ER Differential Diagnosis Differential diagnosis: Likely concussion without loss of consciousness and other (contusion, shoulder sprain, elbow contusion, muscle strain, subdural hematoma ) Imaging Data Radiologist's impression: ITS Impressions Elbow X-Ray 09/03/24 21:32 IMPRESSION: No acute osseous abnormality left elbow. Head CT 09/03/24 21:43 IMPRESSION: No acute intracranial findings. Cervical Spine CT 09/03/24 21:48 IMPRESSION: No acute osseous abnormality cervical spine. Left shoulder x-ray: Degenerative changes of the left shoulder. No acute fracture dislocation Left hip/pelvis x-ray: No acute fracture or dislocation chest x-ray: No acute cardiopulmonary disease Critical Care Time Critical Care Time Critical Care Time: No Discharge Plan Discharge Clinical Impression: Head injury, Contusion of elbow, left, Acute pain of left shoulder, Acute pain of left hip Patient Disposition: Home, Self-Care Condition: Stable Instructions: Head Injury (ED), Contusion in Adults (ED) Additional Instructions: Return to the ER if you experience fever, chest pain, shortness of breath, abdominal pain with nausea and vomiting, numbness, weakness, or any other symptoms that are concerning to you Rest. Ice to the area. Over the counter pain medication as needed Follow up with your primary care doctor Patient Language: Rwandan Prescriptions: No Action latanoprost 0.005 % drops 1 drop EACH EYE DAILY metoprolol tartrate 25 mg tablet 12.5 mg PO BID cholecalciferol (vitamin D3) 2,000 unit tablet 2,000 unit PO DAILY calcium citrate-vitamin D3 [Citracal + D Maximum] 315 mg- 250 unit tablet 1 tablet PO BID multivitamin Tablet 1 tablet PO DAILY warfarin 4 mg tablet 4 mg PO .6xweek quetiapine 25 mg tablet 12.5 mg PO QHS PreserVision AREDS 2,148 mcg-113 mg-45 mg-17.4mg tablet 1 tablet PO DAILY lisinopril 5 mg tablet 5 mg PO DAILY Qty: 90 1RF Follow-up/Referrals: Osman Oneil DO [Primary Care Provider] -
[2024-09-04 00:52] VITALS: BP 125/70; PULSE 80; RESP 16; TEMP 37.3; O2SAT 98
== END 2024-09-04 01:19 | disposition home or self-care (01) ==
PROVIDERS: Emergency Provider Physician Assistant; PCP Internal Medicine
DX: S09.90XA Unspecified injury of head, initial encounter (principal); S50.02XA Contusion of left elbow, initial encounter; S49.92XA Unspecified injury of left shoulder and upper arm, initial encounter; S79.912A Unspecified injury of left hip, initial encounter; E89.0 Postprocedural hypothyroidism; D68.9 Coagulation defect, unspecified; H40.9 Unspecified glaucoma; K21.9 Gastro-esophageal reflux disease without esophagitis; M19.90 Unspecified osteoarthritis, unspecified site; M81.0 Age-related osteoporosis without current pathological fracture; Z90.711 Acquired absence of uterus with remaining cervical stump; Z79.01 Long term (current) use of anticoagulants; Z79.899 Other long term (current) drug therapy; W19.XXXA Unspecified fall, initial encounter
CPT/HCPCS: 70450; 71046; 72125; 73030; 73070; 73502; 99284

== ENCOUNTER 2024-09-29 10:19 | Outpatient (RCR) | payer MEDICARE, OTHER, SELFPAY ==
[2024-08-25 20:21] LABS: INR 1.8; Prothrombin Time 21.1 Seconds (11.1-14.7)
[2024-09-29 19:36] LABS: INR 1.8; Prothrombin Time 21.3 Seconds (11.1-14.7)
== END 2024-11-23 23:59 | disposition home or self-care (01) ==
LOC: ANHGOSHLAB 10:19
PROVIDERS: PCP Internal Medicine; Visit Provider Internal Medicine Cardiovascular Disease
DX: Z51.81 Encounter for therapeutic drug level monitoring (principal); I48.91 Unspecified atrial fibrillation; Z79.01 Long term (current) use of anticoagulants
CPT/HCPCS: 36415; 85610

== ENCOUNTER 2024-10-29 22:38 | Emergency (ER) | payer MEDICARE, OTHER, SELFPAY ==
--- NOTE | ~2024-10-29 | CT_ITS ---
EXAMINATION: CT cervical spine wo con DATE: 10/30/2024 04:24 INDICATION: Fall TECHNIQUE: Computed tomography (CT) of the cervical spine was performed without intravenous contrast. Automated exposure control and iterative reconstruction technique were employed. The dose-length pro duct was 80.90 mGy-cm. COMPARISON: None FINDINGS: 2 mm retrolisthesis C2 on C3 and C4 on C5 and 3 mm retrolisthesis C3 3 on C4. Vertebral body heights are normal. Vertebral body heights are normal. No acute fracture. Moderate disc height loss at C3-C4 through C5-C6 and at T3-T4 and mild disc height loss at T2-T3. Mild central canal stenosis at C3-C4 a nd C4-C5. Severe uncovertebral osteoarthritis on the right at C3-C4 and bilaterally at C4-C5 and C5-C 6. There is multilevel moderate to severe bilateral cervical facet osteoarthritis. This contributes t o moderate neural foraminal stenosis on the right and C4-C5 with mild neural from stenosis at many of the remaining cervical levels. Multinodular status post right thyroidectomy with multiple small subc entimeter thyroid nodules which given patient age are likely not clinically significant. Cervical sof t tissues are otherwise unremarkable. Mild biapical pleural-parenchymal scarring. IMPRESSION: 1. Moderate cervical spondylosis. No acute osseous abnormality. Reviewed, dictated and finalized at location A.
--- NOTE | ~2024-10-29 | XR_ITS ---
EXAMINATION: XR shoulder LT min 2V DATE: 10/30/2024 04:14 INDICATION: Left shoulder contusion post fall TECHNIQUE: AP internally and externally rotated, AP oblique externally rotated and transscapular Y vi ews of the left shoulder were obtained. COMPARISON: None FINDINGS: Mild cephalad subluxation of the humeral head with respect to the glenoid which be seen with rotator cuff tear. No fracture. 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 Anterior subacromial spur. Soft tissues are unremarkable. Visualized portion of the left lung are c lear. IMPRESSION: 1. 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 2. Mild cephalad subluxation of the humeral head and glenoid could be seen with rotator cuff tear. Reviewed, dictated and finalized at location A.
--- NOTE | ~2024-10-29 | CT_ITS ---
EXAMINATION: CT brain wo con DATE: 10/30/2024 04:24 INDICATION: Fall TECHNIQUE: Computed tomography (CT) of the head was performed without intravenous contrast. Sagittal and coronal reconstructions were performed. The mA was adjusted according to patient size. Iterative reconstruction technique was employed. The dose-length product was 756.67 mGy-cm. COMPARISON: head CT dated 09/03/2024 FINDINGS: Left frontal scalp hematoma. No fracture. Small subarachnoid hemorrhage seen along sulci in the bilat eral frontal lobes and right parieto-occipital region. No acute intracranial hemorrhage, acute infarc tion or abnormal extra axial fluid collection. There is mild scattered white matter hypoattenuation c onsistent with chronic small vessel ischemic disease. Symmetric prominence of the sulci consistent wi th mild age-appropriate diffuse cerebral volume loss. Ventricles are normal and symmetric. No mass/ma ss effect. Changes of bilateral intraocular lens replacement. The orbits and mastoid air cells are no rmal. Mild mucosal thickening in the bilateral ethmoid sinuses. Intracranial calcified cerebral ather osclerosis is noted. IMPRESSION: 1. Small subarachnoid hemorrhages in the bilateral frontal lobes and right parietal occipital region. Reviewed, dictated and finalized at location A. IMPRESSION: 1. Small subarachnoid hemorrhages in the bilateral frontal lobes and right gem etal occipital region.
--- OUTSIDE RECORDS SUMMARY | 2024-10-29 22:41 | XMS_ITS | Clinical Summary ---
Author Organization [employer] Address [address] Attn: Epic Prelude ADT ABBY VASQUEZ [id number] Care Team Providers Care Orthopedic Designer Name Role Phone Other, Sgf Primary Care Provider Unavailabl e Allergies Active Allergy Reactions Criticality Noted Date Comments Codeine Rash Low 01/19/2020 Medications VITAMIN E ORAL Take 450 mg by mouth daily. 0 Active calcium/mag/vit vincent D2/Zn/min (HUHUBIB-PXK-RU T N5-KB-TMVBCYSA ORAL) Take by mouth 2 times daily. 0 Active lisinopriL (PRINIVIL) 5 mg tablet Take 5 mg by mouth daily. 0 Active warfarin (COUMADIN) 5 mg tablet Take 5 mg by mouth daily. 1 tablet Thursday, Thursday, , Thursday 0 Active cyanocobalamin 1,000 mcg Tablet Take 1,000 mcg by mouth daily. 0 Active cholecalciferol , vitamin D3, (VITAMIN D3 ORAL) Take by mouth 2 times daily. 0 Active glucosam/rosendo-m sm1/C/sheldon/bosw (OSTEO BI-FLEX TRIPLE STRENGTH ORAL) Take by mouth 2 times daily. 0 Active latanoprost (XALATAN) 0.005 % solution Administer 1 Drop in both eyes daily at bedtime. 0 Active warfarin (COUMADIN) 2 mg tablet Take 2 mg by mouth daily. 3 tablets Thursday, Thursday, Thursday 0 Active KRILL OIL ORAL Take by mouth daily. 0 Active metoprolol tartrate (LOPRESSOR) 25 mg tablet Take 12.5 mg by mouth daily. 0 Active vits A,C,E/zinc/adenike er (VISION-LATOYA PRESERVE ORAL) Take by mouth. 0 Active pyridoxine (VITAMIN B6) 100 mg Tablet Take 100 mg by mouth daily. 0 Active multivit-min/ir on/folic/lutein (CENTRUM SILVER WOMEN ORAL) Take by mouth daily. 0 Active Social History Tobacco Use Types Packs/Day Years Used Date Smoking Tobacco: Passive Smo ke Exposure - Never Smoker Smokeless Tobacco: Never Alcohol Use Standard Drinks/Week Comments Not Currently 0 (1 standard drink = 0.6 oz pur e alcohol) Comments Unknown Sex and Gender Information Value Date Recorded Sex Assigned at Not on file Legal Sex Female 9:08 PM [employer] Gender Identity Not on file Sexual Orientation Not on file Last Filed Vital Signs Vital Sign Reading Time Taken Comments Blood Pressure 150/65 01/19/2020 12:00 PM CDT Pulse 50 01/19/2020 12:00 PM CDT Temperature 36.4 C (97.6 F) 01/19/2020 9:13 AM CDT Respiratory Rate 21 01/19/2020 12:00 PM CDT Oxygen Saturation - - Inhaled Oxygen Concentration - - Weight 53.5 kg (118 lb) 01/19/2020 9:13 AM CDT Height 152.4 cm (5') 01/19/2020 9:13 AM CDT Body Mass Index 23.05 01/19/2020 9:13 AM CDT Plan of Treatment Health Maintenance Due Date Last Done Comments DTAP/TDAP/TD VACCINES (1 - Tdap) 1954 PNEUMOCOCCAL VACCINE 50+ YEARS (1 of 1 - PCV) 07/11/18 86 ZOSTER VACCINE (1 of 2) 1985 OSTEOPOROSIS SCREENING 2000 RSV VACCINE (60+ or ) (1 - 1-dose 75+ series) 2010 INFLUENZA VACCINE (#1) 2024 Care Teams Orthopedic Designer Relationship Specialty Start Date End Date Other, Sgf NO ADDRESS ON FILE PCP - General 01/19/20
--- OUTSIDE RECORDS SUMMARY | 2024-10-29 22:41 | XMS_ITS | Continuity of Care Document ---
Author Organization [facility] Address [address] [place] [address] Phone Care Team Providers Care Pattern Drum Maker Name Role Phone Tyler Pardo Unavailable Unavailable Procedures Procedure Date Eye Exam & Treatment Dilated Macular Exam Performed 10 Counseling For Antioxidant Supplements N Office/outpatient Visit, Est Dilated Macular Exam Performed 10 Counseling For Antioxidant Supplements J Eye Exam Established Pt Optic Nerve Head Eval Dilated Macular Exam Performed 09 Counseling For Antioxidant Supplements S No Script Office/outpatient Visit, Est Optic Nerve Head Eval No Script Corneal Pachymetry Visual Field Examination-Professional De Visual Field Examination(s) Eye Exam & Treatment Dilated Macular Exam Performed 08 Office/outpatient Visit, Est Dilated Macular Exam Performed 08 Office/outpatient Visit, Est AREDS Formula Prescribed/Recommended Apr Dilated Macular Exam Performed 07 Vision Svcs Frames Purchases BF Plastic Sphcyl Bannock To +/-4d .12-2d Frames Deluxe UV Coat Scratch Resistant Coating Post-op Follow-up Visit Refraction Complex Extracapsular Cat Rem 7 Post-op Follow-up Visit Eye Exam, New Patient IOLMaster-Professional Advance Directives Directive Yes / No Effective Date File Name No Information Encounters Encounter Description Practice Location Reason(s) For Visit Diagnoses Date Provider Providers Copied on Encounter [facility], [id number] [place] [address] [address], [place], [place], [id number], [place] tel:[phone] [facility] No Information 0 Char Scott. [address], [address], [place], [address], [place]. tel:[phone] Office/outpat ient Visit, [facility], [address] [place] [address] [address], [place], [place], [address], [place] tel:[phone] [facility] No Information 0 Char Scott. [address], [place], [place], [facility], [place]. tel:[phone] Referring Provider: [address], [place], [place], [facility]. tel:[phone] [facility], [address] [place] [address] [address], [place], [place], [address], [place] tel:[phone] [facility] No Information [address] Char Scott[address], [place], [place], [facility], [place]. tel:[phone] Office/outpat ient Visit, [facility], [address], [place], [place], [address], [place] tel:[phone] [facility] No Information [address] Char Scott[address], [place], [facility], [place]. tel:[phone] Referring Provider: [address], [place], [address]. tel:[phone] [facility], [address], [place], [place], [address], [place] tel:[phone] [facility] No Information Dec-0 8-200 8 Char Scott. [address] [facility] , [address], [place], [place], [facility], [place]. tel:[phone] Referring Provider: Tyler Rojas, [facility] [address], [place], [facility]. tel:[phone] [facility], [address] [place] [address] [address], [place], [place], [address], tel:[phone] [facility] No Information Dec-0 1-200 8 Char Scott. [facility] , [address], [place], [facility], [place]. tel:[phone] Referring Provider: Tyler Rojas, [address] [place], [place] [address], [place], [facility]. tel:[phone] [facility], [address] [place] [address] [address], [place], [place], [address], [place] tel:[phone] [facility] No Information Nov-2 0-200 8 Char Scott. [address] [place], [place] [address] , [address], [place], [facility], [place]. tel:[phone] Office/outpat ient Visit, Est [facility], [address] [place] [address] [address], [place], [place], [address], [place] tel:[phone] [facility] No Information Apr-3 0-200 8 Char Scott. [facility] , [address], [place], [facility], [place]. tel:[phone] Office/outpat ient Visit, Est [facility], [address] [place] [address] [address], [place], [place], [address], [place] tel:[phone] [facility] No Information Oct-2 4-200 7 Char Edzoila. [address] , [address], [place], [address], [place]. tel:[phone] [facility], [address], [place], [place], [address], [place] tel:[phone] [facility] No Information Apr-2 6-200 7 [facility] [employer] . [address], [address], [place], [place], [address], [place]. tel:[phone] Referring Provider: Tyler Rojas, [address] [place], [place] [address]ate [address], [place], [place], [facility]. tel:[phone] perera Provider: Hilary Miller, [address] [place] [address], [facility]. tel:[phone] [facility], [address], [place], [place], [address], [place] tel:[phone] [facility] No Information Apr-2 5-200 7 Char Edzoila. [address] [facility] [address], [address], [place], [facility], [place]. tel:[phone] [facility], [address], [place], [place], [address], [place] tel:[phone] [facility] No Information Apr-1 3-200 7 Char Scott. [address] [facility] , [address], [place], [address], [place]. tel:[phone] [facility], [address], [place], [place], [address], [place] tel:[phone] [facility] No Information Apr-1 3-200 7 Char Scott. [address] , [address], [place], [address], [place]. tel:[phone] [facility], [address], [place], [place], [address], [place] tel:[phone] [facility] No Information Sep-2 1200 7 Char Scott. [address] , [address], [place], [address], [place]. tel:[phone] Referring Provider: Tyler Rojas, [facility] [address], [place], [place], [facility]. tel:[phone] Family History Family Member Type Diagnosis Age At Onset No Information Payers Payer name Insurance type Covered libertarian ID Authoriza tiarnold(s) [place] [id number] Social History Type Description Quantity Date Captured Comments Sex Female Smoking Status No Information Chief Complaint And Reason For Visit No Information Reason For Referral Reason For Referral No Information History Of Present Illness Encounter Date Complaint History Of Prese nt Illness No Information Functional Status Date Functional Assessmen t No Information Instructions Date Instruction Additional Infor mation No Information Assessments Type Assessment Date No Information Patient Care Teams Name Effective Dates (start - stop) Status Members No Information
--- OUTSIDE RECORDS SUMMARY | 2024-10-29 22:41 | XMS_ITS | Clinical Summary ---
Author Organization [facility] [address] Address [address] [place] [address] Care Team Providers Care Irrigation Tax Assessor Collector Name Role Phone Osman Oneil DO Primary Care Provider [phone] Allergies Active Allergy Reactions Criticality Noted Date Comments Codeine Ibuprofen Medications vitamins A,C,E-zinc-adenike er (PRESERVISION AREDS) 7,160-113-100 njci-cz-eiaz tablet 0 0 6 Active lisinopril (PRINIVIL,ZESTR [place]) 5 mg tablet take 1 tablet by oral route every day 0 0 6 Active latanoprost (XALATAN) 0.005 % ophthalmic solution instill 1 drop by ophthalmic route every day into affected eye(s) in the evening 0 0 6 Active wjwrsqay-gux-hp on-FA-vit K-lut 8 mg iron-400 mcg-50 mcg tablet Take by mouth daily 0 Active cholecalciferol , vitamin D3, 400 unit drops Take by mouth 2 (two) times a day 0 Active calcium acetate,phospha t bind, (PHOSLO) 667 mg capsule Take 2 capsules (1,334 mg total) by mouth 3 (three) times a day with meals Active QUEtiapine (SEROquel) 25 mg tablet TAKE 1 TABLET BY MOUTH EVERY DAY AT NIGHT 90 tablet 3 5 Active warfarin (COUMADIN) 2 mg tablet TAKE 3 TABLETS BY MOUTH ON MONDAYS AND FRIDAYS, THEN 2 TABLETS ALL OTHER DAYS 204 tablet 5 Active metoprolol tartrate (LOPRESSOR) 25 mg immediate release tablet Take 0.5 tablets (12.5 mg total) by mouth 2 (two) times a day 90 tablet 3 5 Active memantine (NAMENDA) 10 mg tabletIndicatio ns:Moderate to Severe Alzheimer's Type Dementia Take 1 tablet (10 mg total) by mouth 2 (two) times a day 60 tablet 11 5 09/27/19 26 Active mupirocin (BACTROBAN) 2 % ointmentIndicat ions:Cat bite, initial encounter Apply topically 3 (three) times a day 22 g 5 Active amoxicillin-cla vulanate (AUGMENTIN) 875-125 mg per tabletIndicatio ns:Cat bite, initial encounter Take 1 tablet by mouth 2 (two) times a day for 10 days 20 tablet 5 11/01/19 25 Active Active Problems Problem Noted Date Diagnosed Date Alzheimer's disease 08/29/2024 Mixed hyperlipidemia 05/20/2021 Lipid screening 01/16/2021 Bradycardia 04/07/2019 Chronic fatigue 03/25/2018 Atrial fibrillation ([facility]) [I48.91] 7 Tricuspid valve insufficiency 04/28/2016 Overview (10/09/2016): Tricuspid valve insufficiency, unspecified etiology Pulmonary hypertension ([facility]) 04/28/2016 Overview (10/09/2016): Pulmonary HTN 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 (10/09/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 Chronic anticoagulation 02/25/2016 Overview (10/09/2016): Chronic anticoagulation Paroxysmal atrial flutter ([facility]) 02/25/2016 Overview (10/09/2016): Atrial flutter, paroxysmal Palpitations 12/28/2015 Overview (10/09/2016): Palpitations Premature atrial contraction 12/28/2015 Overview (10/10/2016): PAC (premature atrial contraction) Benign hypertension 12/28/2015 Overview (10/10/2016): HTN (hypertension), benign Left bundle branch block (LBBB) 12/28/2015 Overview (10/10/2016): LBBB (left bundle branch block) Resolved Problems Problem Noted Date Diagnosed Date Resolved Date Mild late onset Alzheimer's dementia without behavioral disturbance, psychotic disturbance, mood disturbance, or anxiety 01/29/2023 08/29/2024 Encounters Date Type Department Care Team Description 10/27/2024 8:30 AM CDT Office Visit [facility] Cardiology [address] [place] [address] [place] [phone] Flavio Perez MD Paroxysmal atrial fibrillation (HCC) (Primary Dx); Benign hypertension; Left bundle branch block (LBBB); Mixed hyperlipidemia; Pulmonary hypertension (CMS/HCC) (HCC); Tachycardia-bradycard ia (CMS/HCC) (HCC) 10/21/2024 8:30 AM CDT Office Visit [facility] Care at [address] [phone] Kassi Oliveros NP Cat bite, initial encounter (Primary Dx) 09/30/2024 Anticoagulation Visit [facility] Cardiology [address] [place] [address] [place] [phone] Jimena Mills RN Chronic anticoagulation (Primary Dx) 09/26/2024 Telephone [facility] [address] [place] [address] Gloria Monsivais RN 08/29/2024 12:15 PM STRATEGIC INTELLIGENCE OFFICER Office Visit [facility] [address] 6th [address] [place] [address] Maia Christiansen NP Alzheimer's disease (HCC) (Primary Dx) 08/26/2024 Anticoagulation Visit [facility] Cardiology [address] [place] [address] [address] [place] [address] Flavio Mendez RN Chronic anticoagulation (Primary Dx); Atrial fibrillation (CMS/HCC) [I48.91] 08/24/2024 Results Follow-Up [facility] at [address] [address] Arben Carlos NP 08/22/2024 11:24 AM STRATEGIC INTELLIGENCE OFFICER - 08/22/2024 11:59 PM STRATEGIC INTELLIGENCE OFFICER Hospital Encounter [address] [address] Acute cystitis with hematuria Discharge Disposition: Discharge to home or self care 08/22/2024 10:30 AM STRATEGIC INTELLIGENCE OFFICER Office Visit [facility] at [address] [phone] Arben Carlos NP Acute cystitis with hematuria (Primary Dx); Bradycardia; Elevated blood pressure reading in office with diagnosis of hypertension from Last 3 Months Immunizations Immunization Administration Dates Next Due Influenza, Quadrivalent, Hig h Dose, Preservative Free, Intrr 05/19/2023 Influenza, Trivalent, High D ose, Split, Preservative Free, Intramuscular 05/11/2017,05/22/2016 ZOSTER LIVE 03/03/2016 Surgical History Surgery Date Site/Laterality Comments VAGINAL HYSTERECTOMY Hysterectomy, vaginal TONSILLECTOMY Tonsillectomy THYROIDECTOMY Thyroidectomy CATARACT EXTRACTION HYSTERECTOMY Medical History Medical History Date Comments Hx Other Medical 1971 lump left breas t; Comments: TYW 12/27/2015 - Hx Other Medical 2009 spurs removed f rom rt shoulder; Comments: TYW 12/27/2015 - Embolism (HCC) Blood clots Osteoporosis Osteoporosis Hx Other Medical gastroesophagea l reflux disease; Comments: TYW 12/27/2015 - Hx Other Medical osteoarthritis; Comments: TYW 12/27/2015 - Hx Other Medical cataract / glau coma; Comments: TYW 12/27/2015 - Glaucoma Hypertension Family History Medical History Relation Name Comments Alzheimer's disease Brother Connie Berry Dementia Brother Connie Berry Other Brother Connie Berry Viky degen; Heart disease Daughter Marisa Kelly Hypertension Daughter Marisa Kelly Alzheimer's disease Father Mark Berry Atrial fibrillation Father Mark Berry Atrial fibrillation; Other Father Mark Berry viky degen; Tremor Father Mark Berry COPD Mother Erin Berry Hearing loss Mother Erin Berry Heart attack Mother Erin Berry Heart failure Mother Erin Berry Congestive hea rt failure; Other Mother Erin Berry mac degen; Osteoarthritis Sister Osteoarthriti s; Relation Name Status Comments Brother Connie Berry Daughter Marisa Kelly Father Mark Berry Mother Erin Berry Sister Social History Tobacco Use Types Packs/Day Years Used Date Smoking Tobacco: Never Smokeless Tobacco: Never Alcohol Use Standard Drinks/Week Comments No 0 (1 standard drink = 0.6 oz pur e alcohol) Comments No Sex and Gender Information Value Date Recorded Sex Assigned at Not on file Legal Sex Female 4:59 PM STRATEGIC INTELLIGENCE OFFICER Gender Identity Female 05/18/2023 12:00 PM STRATEGIC INTELLIGENCE OFFICER Sexual Orientation Straight 02/08/2024 9: 08 AM CDT Obstetrics History Last Filed Vital Signs Vital Sign Reading Time Taken Comments Blood Pressure 140/68 10/27/2024 8:46 AM CDT Pulse 79 10/27/2024 8:46 AM CDT Temperature 36.1 C (96.9 F) 10/21/2024 8:16 AM CDT Respiratory Rate 14 10/21/2024 8:16 AM CDT Oxygen Saturation 97% 10/27/2024 8:46 AM CDT Inhaled Oxygen Concentration - - Weight 46.3 kg (102 lb) 10/27/2024 8:46 AM CDT Height 152.4 cm (5') 10/27/2024 8:46 AM CDT Body Mass Index 19.92 10/27/2024 8:46 AM CDT Plan of Treatment Health Maintenance Due Date Last Done Comments Depression Screening 1935 Fall Risk Assessment 1935 DTaP/Tdap/Td Vaccine (1 - Tdap) 1946 Hepatitis B Screening 1953 Pneumococcal vaccine 65+ (1 of 1 - PCV) 1985 Well Visit 65+ 2000 Zoster Vaccine (2 of 3) 04/28/2016 03/03/2016 Influenza Vaccine (Season Ended) 2025 05/19/2023, 05/11/2017, 05/22/2016 Procedures Procedure Name Priority Date/Time Associated Diagnosis Comments PROTIME-INR Routine 09/29/2024 PROTIME-INR Routine 08/25/2024 URINE CULTURE Routine 08/22/2024 11:24 AM STRATEGIC INTELLIGENCE OFFICER Acute cystitis with hematuria POCT URINALYSIS DIPSTICK Routine 08/22/2024 11:16 AM STRATEGIC INTELLIGENCE OFFICER Acute cystitis with hematuria from Last 3 Months Results * (ABNORMAL) Protime-INR (09/29/2024) INR 1.80(A) 0.90 - 1.10 EXTERNAL LAB Blood Historical Provider MD LAB BLOOD ORDERABLES Екатерина l Result EXTERNAL LAB * (ABNORMAL) Protime-INR (08/25/2024) INR 1.80(A) 0.90 - 1.10 EXTERNAL LAB Blood Historical Provider MD LAB BLOOD ORDERABLES Екатерина l Result EXTERNAL LAB * Urine culture Urine, clean voided (08/22/2024 11:24 AM STRATEGIC INTELLIGENCE OFFICER) Report Final Report: Less than 100,000 colonies/mL (clinically insignificant growth based on current clinical standards) Comment:Testing performed by : [facility], [address] [place]., [address] Organism (CLINICALLY INSIGNIFICANT GROWTH JAYNA Urine, clean voided 08/22/2024 11:24 AM STRATEGIC INTELLIGENCE OFFICER 08/22/2024 10:10 PM STRATEGIC INTELLIGENCE OFFICER Narrative JAYNA - 08/24/2024 7:56 AM STRATEGIC INTELLIGENCE OFFICER Testing performed by [facility] Microbiology Laboratory ([phone]) Arben Carlos NP LAB MICROBIOLOGY - GENERAL JULIAN LEE Final Result Performing Organization Address City/[facility]/ZIP Co de Phone Number JAYNA [address] [place] [address] * (ABNORMAL) POCT urinalysis dipstick (08/22/2024 11:16 AM STRATEGIC INTELLIGENCE OFFICER) Color, Urine, POC Light Yellow Clarity, ur, POC Clear Clear Glucose, ur, POC Negative Negative MG/DL Bilirubin, ur, POC Negative Negative, Small, Moderate, Large Ketones, ur, POC Negative Negative Specific Bradford, POC 1.020 1.003 - 1.030 Blood, ur, POC Trace(A) Negative pH, ur, POC 5.5 5.0 - 8.0 Protein, ur, POC Negative Negative Urobilinogen, urine, POC 0.2 0.2 - 1.0 mg/dL Nitrite, ur, POC Negative Negative Leukocytes, ur, POC Negative Negative Lot Number 0 Urine 08/22/2024 11:1 6 AM STRATEGIC INTELLIGENCE OFFICER Arben Carlos NP POINT OF CARE TEST ORDERABLES F inal Result from Last 3 [place] [address] [facility] MEDICARE [place] [id number] MEDICARE [facility] MEDICARE [facility] [place] [address] Care Teams Irrigation Tax Assessor Collector Relationship Specialty Start Date End Date Osman Oneil DO PCP - General 10/03/16
--- OUTSIDE RECORDS SUMMARY | 2024-10-29 22:41 | XMS_ITS | Referral Summary ---
Author Organization [place] [address] Address [address] [facility] [address] [place] [address] Care Team Providers Care Denture Technician Name Role Phone Osman Oneil DO Primary Care Provider +1- [phone] Encounters Date Type Department Care Team Description 10/27/2024 8:30 AM CDT Office Visit [facility] Medical Group Cardiology [address] [place] [address] [address] [place] [address] Flavio Perez MD Paroxysmal atrial fibrillation (HCC) (Primary Dx); Benign hypertension; Left bundle branch block (LBBB); Mixed hyperlipidemia; Pulmonary hypertension (CMS/HCC) (HCC); Tachycardia-bradycard ia (CMS/HCC) (HCC) 10/21/2024 8:30 AM CDT Office Visit [facility] Medical Group [facility] Care at [address] [address] Kassi Oliveros NP Cat bite, initial encounter (Primary Dx) 09/30/2024 Anticoagulation Visit [facility] [address] [place] [address] [address] [place] [address] Jimena Mills RN Chronic anticoagulation (Primary Dx) 09/26/2024 Telephone [place] [address] [facility] First Floor [address] [place] [address] Gloria Monsivais RN 08/29/2024 12:15 PM CEMENT TRUCK DRIVER Office Visit [address] 6th Floor [address] [place] [address] Maia Christiansen NP Alzheimer's disease (HCC) (Primary Dx) 08/26/2024 Anticoagulation Visit [facility] Medical Group Cardiology [address] [place] [address] Flavio Mendez RN Chronic anticoagulation (Primary Dx); Atrial fibrillation (CMS/HCC) [I48.91] 08/24/2024 Results Follow-Up [facility] Group [facility]venient Care at [address] [phone] Arben Carlos NP 08/22/2024 11:24 AM CEMENT TRUCK DRIVER - 08/22/2024 11:59 PM CEMENT TRUCK DRIVER Hospital Encounter [address] [address] Acute cystitis with hematuria Discharge Disposition: Discharge to home or self care 08/22/2024 10:30 AM CEMENT TRUCK DRIVER Office Visit [facility] Care at [address] [phone] Arben Carlos NP Acute cystitis with hematuria (Primary Dx); Bradycardia; Elevated blood pressure reading in office with diagnosis of hypertension from Last 3 Months Allergies Active Allergy Reactions Criticality Noted Date Comments Codeine Ibuprofen Medications vitamins A,C,E-zinc-adenike er (PRESERVISION AREDS) 7,160-113-100 orsg-no-fryu tablet 0 0 6 Active lisinopril (PRINIVIL,ZESTR [place]) 5 mg tablet take 1 tablet by oral route every day 0 0 6 Active latanoprost (XALATAN) 0.005 % ophthalmic solution instill 1 drop by ophthalmic route every day into affected eye(s) in the evening 0 0 6 Active evzkcokp-han-wb on-FA-vit K-lut 8 mg iron-400 mcg-50 mcg [...] Bradycardia 04/07/2019 Chronic fatigue 03/25/2018 Atrial fibrillation (CMS/HCC) [I48.91] 7 Tricuspid valve insufficiency 04/28/2016 Overview (10/09/2016): Tricuspid valve insufficiency, unspecified etiology Pulmonary hypertension (CMS/HCC) 04/28/2016 Overview (10/09/2016): Pulmonary HTN Tachycardia-bradycardia (CMS/HCC) 02/25/2016 Overview (10/09/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 Chronic anticoagulation 02/25/2016 Overview (10/09/2016): Chronic anticoagulation Paroxysmal atrial flutter (CMS/HCC) 02/25/2016 Overview (10/09/2016): Atrial flutter, paroxysmal Palpitations [...] disturbance, mood disturbance, or anxiety 01/29/2023 08/29/2024 Immunizations Immunization Administration Dates Next Due Influenza, Quadrivalent, Hig h Dose, Preservative Free, Intrr 05/19/2023 Influenza, Trivalent, High D ose, Split, Preservative Free, Intramuscular 05/11/2017,05/22/2016 ZOSTER LIVE 03/03/2016 Social History Tobacco Use Types Packs/Day Years Used Date Smoking Tobacco: Never Smokeless Tobacco: Never Alcohol Use Standard Drinks/Week Comments No 0 (1 standard drink = 0.6 oz pur e alcohol) Comments No Sex and Gender Information Value Date Recorded Sex Assigned at Not on file Legal Sex Female 4:59 PM CEMENT TRUCK DRIVER Gender Identity Female 05/18/2023 12:00 PM CEMENT TRUCK DRIVER Sexual Orientation Straight 02/08/2024 9: 08 AM CDT Last Filed Vital Signs Vital Sign Reading [...] 10/27/2024 8:46 AM CDT Plan of Treatment Not on file Procedures Procedure Name Priority Date/Time Associated Diagnosis Comments PROTIME-INR Routine 09/29/2024 PROTIME-INR Routine 08/25/2024 URINE CULTURE Routine 08/22/2024 11:24 AM CEMENT TRUCK DRIVER Acute cystitis with hematuria POCT URINALYSIS DIPSTICK Routine 08/22/2024 11:16 AM CEMENT TRUCK DRIVER Acute cystitis with hematuria from Last 3 Months Results * (ABNORMAL) Protime-INR (09/29/2024) INR 1.80(A) 0.90 - 1.10 EXTERNAL LAB Blood Historical Provider MD LAB BLOOD ORDERABLES Екатерина l Result EXTERNAL LAB * (ABNORMAL) Protime-INR (08/25/2024) Pathologist [facility] INR 1.80(A) 0.90 - 1.10 EXTERNAL LAB Blood [facility] Provider MD LAB BLOOD ORDERABLES Екатерина l Result EXTERNAL LAB * Urine culture Urine, clean voided (08/22/2024 11:24 AM CEMENT TRUCK DRIVER) Report Final Report: Less than 100,000 colonies/mL (clinically insignificant growth based on current clinical standards) Comment:Testing performed by : [facility], [address] [facility], [place]., [address] Organism (CLINICALLY INSIGNIFICANT GROWTH CERNER Urine, clean voided 08/22/2024 11:24 AM CEMENT TRUCK DRIVER 08/22/2024 10:10 PM CEMENT TRUCK DRIVER Narrative JAYNA - 08/24/2024 7:56 AM CEMENT TRUCK DRIVER Testing performed by [facility] Microbiology Laboratory ([phone]) Arben Carlos NP LAB MICROBIOLOGY - GENERAL CAROLYNEn LARASEDA Final Result JAYNA [place] [address] Department [place] [address] * (ABNORMAL) POCT urinalysis dipstick (08/22/2024 11:16 AM CEMENT TRUCK DRIVER) Color, Urine, POC Light Yellow Clarity, ur, POC Clear Clear Glucose, ur, POC Negative Negative MG/DL Bilirubin, ur, POC Negative Negative, Small, Moderate, Large Ketones, ur, POC Negative Negative Specific [place], POC 1.020 1.003 - 1.030 Blood, ur, POC Trace(A) Negative pH, ur, POC 5.5 5.0 - 8.0 Protein, ur, POC Negative Negative Urobilinogen, urine, POC 0.2 0.2 - 1.0 mg/dL Nitrite, ur, POC Negative Negative Leukocytes, ur, POC Negative Negative Lot Number 0 Urine 08/22/2024 11:1 6 AM CEMENT TRUCK DRIVER Arben Carlos NP POINT OF CARE TEST ORDERABLES F inal Result from Last 3 Months Insurance [facility] MEDICARE MEDICARE [facility] MEDICARE [facility] Care Teams Denture Technician Relationship Specialty Start Date End Date Osman Oneil DO PCP - General 10/03/16
[2024-10-29 23:04] VITALS: BP 147/70; PULSE 111; RESP 16; TEMP 36.6; O2SAT 99
[2024-10-30 01:48] VITALS: BP 137/72; PULSE 115; RESP 16; TEMP 36.8; O2SAT 97
[2024-10-30 03:54] VITALS: BP 132/77; PULSE 91; RESP 14; O2SAT 99
--- OUTSIDE RECORDS SUMMARY | 2024-10-30 04:06 | XMS_ITS | Clinical Summary ---
Author Organization [facility] [address] Address [address] [place] [address] Care Team Providers Care Hat And Cap Sewer Name Role Phone Osman Oneil DO Primary Care Provider +1- [phone] Allergies Active Allergy Reactions Criticality Noted Date Comments Codeine Ibuprofen Medications vitamins A,C,E-zinc-adenike er (PRESERVISION AREDS) 7,160-113-100 wpcy-cj-gspj tablet 0 0 6 Active lisinopril (PRINIVIL,ZESTR IL) 5 mg tablet take 1 tablet by oral route every day 0 0 6 Active latanoprost (XALATAN) 0.005 % ophthalmic solution instill 1 drop by ophthalmic route every day into affected eye(s) in the evening 0 0 6 Active lybyukcs-fbk-hy on-FA-vit K-lut 8 mg iron-400 mcg-50 mcg [...] Bradycardia 04/07/2019 Chronic fatigue 03/25/2018 Atrial fibrillation ([facility]) [I48.91] 7 Tricuspid valve insufficiency 04/28/2016 Overview (10/09/2016): Tricuspid valve insufficiency, unspecified etiology Pulmonary hypertension ([facility]) 04/28/2016 Overview (10/09/2016): Pulmonary HTN 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/09/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 Chronic anticoagulation 02/25/2016 Overview (10/09/2016): Chronic anticoagulation Paroxysmal atrial flutter ([facility]) 02/25/2016 Overview (10/09/2016): Atrial flutter, paroxysmal Palpitations [...] Description 10/27/2024 8:30 AM CDT Office Visit [facility] Cardiology [address] [place] [address] [place] [phone] Flavio Perez MD Paroxysmal atrial fibrillation (HCC) (Primary Dx); Benign hypertension; Left bundle branch block (LBBB); Mixed hyperlipidemia; Pulmonary hypertension (CMS/HCC) (HCC); Tachycardia-bradycard ia (CMS/HCC) (HCC) 10/21/2024 8:30 AM CDT Office Visit [facility] Care at [address] [phone] Kassi Oliveros NP Cat bite, initial encounter (Primary Dx) 09/30/2024 Anticoagulation Visit [facility] Cardiology [address] [place] [address] [place] [phone] Jimena Mills RN Chronic anticoagulation (Primary Dx) 09/26/2024 Telephone [facility] [address] [facility] First Floor [address] [place] [address] Gloria Monsivais RN 08/29/2024 12:15 PM APPAREL FASHION DESIGNER Office Visit [facility] [address] [facility] 6th Floor [address] [place] [address] Maia Christiansen NP Alzheimer's disease (HCC) (Primary Dx) 08/26/2024 Anticoagulation Visit [facility] Cardiology [address] [place] [address] [address] [place] [address] Flavio Mendez RN Chronic anticoagulation (Primary Dx); Atrial fibrillation (CMS/HCC) [I48.91] 08/24/2024 Results Follow-Up [facility] Medical Group Convenient Care at [address] [address] Arben Carlos NP 08/22/2024 11:24 AM APPAREL FASHION DESIGNER - 08/22/2024 11:59 PM APPAREL FASHION DESIGNER Hospital Encounter [address] [address] Acute cystitis with hematuria Discharge Disposition: Discharge to home or self care 08/22/2024 10:30 AM APPAREL FASHION DESIGNER Office Visit [facility] Medical Group Convenient Care at [address] [phone] Arben Carlos NP Acute cystitis with hematuria [...] on file Legal Sex Female 4:59 PM APPAREL FASHION DESIGNER Gender Identity Female 05/18/2023 12:00 PM APPAREL FASHION DESIGNER Sexual Orientation Straight 02/08/2024 9: 08 AM [...] 08/25/2024 URINE CULTURE Routine 08/22/2024 11:24 AM APPAREL FASHION DESIGNER Acute cystitis with hematuria POCT URINALYSIS DIPSTICK Routine 08/22/2024 11:16 AM APPAREL FASHION DESIGNER Acute cystitis with hematuria from Last 3 [...] culture Urine, clean voided (08/22/2024 11:24 AM APPAREL FASHION DESIGNER) Report Final Report: Less than 100,000 colonies/mL (clinically insignificant growth based on current clinical standards) Comment:Testing performed by : [facility], [address] [place]., [address] Organism (CLINICALLY INSIGNIFICANT GROWTH JAYNA Urine, clean voided 08/22/2024 11:24 AM APPAREL FASHION DESIGNER 08/22/2024 10:10 PM APPAREL FASHION DESIGNER Narrative JAYNA - 08/24/2024 7:56 AM APPAREL FASHION DESIGNER Testing performed by [facility] Microbiology Laboratory ([phone]) Arben Carlos NP LAB MICROBIOLOGY - GENERAL JULIAN LEE Final Result Performing Organization Address City/[facility]/ZIP Co de Phone Number JAYNA [address] [place] [address] * (ABNORMAL) POCT urinalysis dipstick (08/22/2024 11:16 AM APPAREL FASHION DESIGNER) Color, Urine, POC Light Yellow Clarity, ur, POC Clear Clear Glucose, ur, POC Negative Negative MG/DL Bilirubin, ur, POC Negative Negative, Small, Moderate, Large Ketones, ur, POC Negative Negative Specific [place], POC 1.020 1.003 - 1.030 Blood, ur, POC Trace(A) Negative pH, ur, POC 5.5 5.0 - 8.0 Protein, ur, POC Negative Negative Urobilinogen, urine, POC 0.2 0.2 - 1.0 mg/dL Nitrite, ur, POC Negative Negative Leukocytes, ur, POC Negative Negative Lot Number 0 Urine 08/22/2024 11:1 6 AM APPAREL FASHION DESIGNER Arben Carlos NP POINT OF CARE TEST ORDERABLES F inal Result from Last 3 [place] [address] [facility] MEDICARE [place] [id number] [facility] [address] [facility] [place] [address] Care Teams Hat And Cap Sewer Relationship Specialty Start Date End Date Osman Oneil DO PCP - General 10/03/16
--- OUTSIDE RECORDS SUMMARY | 2024-10-30 04:06 | XMS_ITS | Clinical Summary ---
Author Organization [place] Address [address] [facility] Attn: Epic Prelude ADT [place]Y [place] [address] Care Team Providers Care Acid Pumper Name Role Phone Other, Sgf Primary Care Provider Unavailabl e Allergies Active Allergy Reactions Criticality Noted Date Comments Codeine Rash Low 01/19/2020 Medications VITAMIN E ORAL Take 450 mg by mouth daily. 0 Active calcium/mag/vit vincent D2/Zn/min (HEEVYJH-WII-VW T W1-IZ-EABVYZWM ORAL) Take by mouth 2 times daily. [...] mouth daily. 0 Active vits A,C,E/zinc/adenike er (VISION-LTAOYA PRESERVE ORAL) Take by mouth. 0 Active [...] on file Legal Sex Female 9:08 PM POLICE RECORDS CLERK Gender Identity Not on file Sexual Orientation [...] 2010 INFLUENZA VACCINE (#1) 2024 Care Teams Acid Pumper Relationship Specialty Start Date End Date Other, Sgf NO ADDRESS ON FILE PCP - General 01/19/20
--- OUTSIDE RECORDS SUMMARY | 2024-10-30 04:06 | XMS_ITS | Referral Summary ---
Author Organization [place] [address] Address [address] [facility] [address] [place] [address] Care Team Providers Care Marketing Intern Name Role Phone Osman Oneil DO Primary Care Provider +1- [phone] Encounters Date Type Department Care Team Description 10/27/2024 8:30 AM CDT Office Visit [facility] Medical Group Cardiology [address] [place] [address] [address] [place] [address] Flavio Perez MD Paroxysmal atrial fibrillation (HCC) (Primary Dx); Benign hypertension; Left bundle branch block (LBBB); Mixed hyperlipidemia; Pulmonary hypertension (CMS/HCC) (HCC); Tachycardia-bradycard ia (CMS/HCC) (HCC) 10/21/2024 8:30 AM CDT Office Visit [facility] Medical Group [facility] Care at [address] [address] Kassi Oliveros NP Cat bite, initial encounter (Primary Dx) 09/30/2024 Anticoagulation Visit [facility] Cardiology [address] [place] [address] [address] [place] [address] Jimena Mills RN Chronic anticoagulation (Primary Dx) 09/26/2024 Telephone [place] [address] [facility] First Floor [address] [place] [address] Gloria Monsivais RN 08/29/2024 12:15 PM GLUE LINE OPERATOR Office Visit [address] 6th Floor [address] [place] [address] Maia Christiansen NP Alzheimer's disease (HCC) (Primary Dx) 08/26/2024 Anticoagulation Visit [facility] Medical Group Cardiology [address] [place] [phone] Flavio Mendez RN Chronic anticoagulation (Primary Dx); Atrial fibrillation (CMS/HCC) [I48.91] 08/24/2024 Results Follow-Up [facility] Group Convenient Care at [address] [phone] Arben Carlos NP 08/22/2024 11:24 AM GLUE LINE OPERATOR - 08/22/2024 11:59 PM GLUE LINE OPERATOR Hospital Encounter [address] [address] Acute cystitis with hematuria Discharge Disposition: Discharge to home or self care 08/22/2024 10:30 AM GLUE LINE OPERATOR Office Visit [facility] Convenient Care at [address] [phone] Arben Carlos NP Acute cystitis with hematuria (Primary Dx); Bradycardia; Elevated blood pressure reading in office with diagnosis of hypertension from Last 3 Months Allergies Active Allergy Reactions Criticality Noted Date Comments Codeine Ibuprofen Medications vitamins A,C,E-zinc-adenike er (PRESERVISION AREDS) 7,160-113-100 jdzp-vu-cnhm tablet 0 0 6 Active lisinopril (PRINIVIL,ZESTR IL) 5 mg tablet take 1 tablet by oral route every day 0 0 6 Active latanoprost (XALATAN) 0.005 % ophthalmic solution instill 1 drop by ophthalmic route every day into affected eye(s) in the evening 0 0 6 Active iyspichc-ypt-hs on-FA-vit K-lut 8 mg iron-400 mcg-50 mcg [...] on file Legal Sex Female 4:59 PM GLUE LINE OPERATOR Gender Identity Female 05/18/2023 12:00 PM GLUE LINE OPERATOR Sexual Orientation Straight 02/08/2024 9: 08 AM [...] 08/25/2024 URINE CULTURE Routine 08/22/2024 11:24 AM GLUE LINE OPERATOR Acute cystitis with hematuria POCT URINALYSIS DIPSTICK Routine 08/22/2024 11:16 AM GLUE LINE OPERATOR Acute cystitis with hematuria from Last 3 Months Results * (ABNORMAL) Protime-INR (09/29/2024) INR 1.80(A) 0.90 - 1.10 EXTERNAL LAB Blood Historical Provider MD LAB BLOOD ORDERABLES Екатерина l Result EXTERNAL LAB * (ABNORMAL) Protime-INR (08/25/2024) Pathologist [facility] INR 1.80(A) 0.90 - 1.10 EXTERNAL LAB Blood [facility] Provider MD LAB BLOOD ORDERABLES Екатерина l Result EXTERNAL LAB * Urine culture Urine, clean voided (08/22/2024 11:24 AM GLUE LINE OPERATOR) Report Final Report: Less than 100,000 colonies/mL (clinically insignificant growth based on current clinical standards) Comment:Testing performed by : [facility], [address] [facility], [place]., [address] Organism (CLINICALLY INSIGNIFICANT GROWTH CERNER Urine, clean voided 08/22/2024 11:24 AM GLUE LINE OPERATOR 08/22/2024 10:10 PM GLUE LINE OPERATOR Narrative JAYNA - 08/24/2024 7:56 AM GLUE LINE OPERATOR Testing performed by [facility] Microbiology Laboratory ([phone]) Arben Carlos NP LAB MICROBIOLOGY - GENERAL CAROLYNEn LARASEDA Final Result JAYNA [place]ER[place] [address] Department [place] [address] * (ABNORMAL) POCT urinalysis dipstick (08/22/2024 11:16 AM GLUE LINE OPERATOR) Color, Urine, POC Light Yellow Clarity, ur, POC Clear Clear Glucose, ur, POC Negative Negative MG/DL Bilirubin, ur, POC Negative Negative, Small, Moderate, Large Ketones, ur, POC Negative Negative Specific [place], POC 1.020 1.003 - 1.030 Blood, ur, POC Trace(A) Negative pH, ur, POC 5.5 5.0 - 8.0 Protein, ur, POC Negative Negative Urobilinogen, urine, POC 0.2 0.2 - 1.0 mg/dL Nitrite, ur, POC Negative Negative Leukocytes, ur, POC Negative Negative Lot Number 0 Urine 08/22/2024 11:1 6 AM GLUE LINE OPERATOR Arben Carlos NP POINT OF CARE TEST ORDERABLES F inal Result from Last 3 Months Insurance [facility] MEDICARE MEDICARE [facility] [place] [address] [facility] Care Teams Marketing Intern Relationship Specialty Start Date End Date Osman Oneil DO PCP - General 10/03/16
--- OUTSIDE RECORDS SUMMARY | 2024-10-30 04:06 | XMS_ITS | Continuity of Care Document ---
Author Organization [facility] Address [address] [place] [address] Phone Care Team Providers Care Metal Handler Name Role Phone Tyler Pardo Unavailable Unavailable [...] Vision Svcs Frames Purchases BF Plastic Sphcyl [place] To +/-4d .12-2d Frames Deluxe UV Coat Scratch Resistant Coating Post-op Follow-up Visit Refraction Complex Extracapsular Cat Rem 7 Post-op Follow-up Visit Eye Exam, New Patient [employer] Advance Directives Directive Yes / No Effective Date File Name No Information Encounters Encounter Description Practice Location Reason(s) For Visit Diagnoses Date Provider Providers Copied on Encounter [facility], [id number] [place] [address] [address], [place], [place], [id number], [place] tel:[phone] [facility] No Information 0 Char Scott. [address], [address], [place], [address], [place]. tel:[phone] Office/outpat ient Visit, [facility], [id number] [place] [address] [address], [place], [place], [id number], [place] tel:[phone] [facility] No Information 0 Char Scott. [address], [place], [place], [facility], [place]. tel:[phone] Referring Provider: [address], [place], [facility]. tel:[phone] [facility], [address] [place] [address] [address], [place], [place], [id number], [place] tel:[phone] [facility] No Information 9 Char Scott. [address], [place], [place], [facility], [place]. tel:[phone] Office/outpat ient Visit, [facility], [address], [place], [place], [id number], [place] tel:[phone] [facility] No Information 9 Char Scott. [address], [place], [facility], [place]. tel:[phone] Referring Provider: [address], [place], [address]. tel:[phone] [facility], [address], [place], [place], [id number], [place] tel:[phone] [facility] No Information Dec-0 8-200 8 Char Scott. [address] [facility] , [address], [place], [facility], [place]. tel:[phone] Referring Provider: [facility] Rojas, [facility] [address], [place], [facility]. tel:[phone] [facility], [address] [place] [address] [address], [place], [place], [id number], tel:[phone] [facility] No Information Dec-0 1-200 8 Char Scott. [facility] , [address], [place], [facility], [place]. tel:[phone] Referring Provider: Tyler Rojas, [address] [place], [place] [address]ate [address], [place], [facility]. tel:[phone] [facility], [address] [place] [address] [address], [place], [place], [id number], [place] tel:[phone] [facility] No Information Nov-2 0-200 8 Char Scott. [address] [place], [place] [address] , [address], [place], [facility], [place]. tel:[phone] Office/outpat ient Visit, [facility], [address] [place] [address] [address], [place], [place], [id number], [place] tel:[phone] [facility] No Information Apr-3 0-200 8 Char Scott. [facility] , [address], [place], [facility], [place]. tel:[phone] Office/outpat ient Visit, [facility], [address] [place] [address] [address], [place], [place], [id number], [place] tel:[phone] [facility] No Information Oct-2 4-200 7 Char Edzoila. [address] , [address], [place], [address], [place]. tel:[phone] [facility], [address], [place], [place], [id number], [place] tel:[phone] [facility] No Information Apr-2 6-200 7 [facility] . [address], [address], [place], [place], [address], [place]. tel:[phone] Referring Provider: Tyler Rojas, [address] [place], [place] [address]ate [address], [place], [facility]. tel:[phone] perera Provider: Hilary Miller, [address] [place] [address], [facility]. tel:[phone] [facility], [address], [place], [place], [id number], [place] tel:[phone] [facility] No Information Apr-2 5-200 7 Char Edzoila. [address] [facility] [address], [address], [place], [facility], [place]. tel:[phone] [facility], [address], [place], [place], [id number], [place] tel:[phone] [facility] No Information Apr-1 3-200 7 Char Scott. [address] [facility] , [address], [place], [address], [place]. tel:[phone] [facility], [address], [place], [place], [id number], [place] tel:[phone] [facility] No Information Apr-1 3-200 7 Char Scott. [address] , [address], [place], [address], [place]. tel:[phone] [facility], [address], [place], [place], [address], [place] tel:[phone] [facility] No Information Sep-2 1200 7 Char Scott. [address] [facility] [address] , [address], [place], [address], [place]. tel:[phone] Referring Provider: Tyler Rojas, [facility] [address], [place], [facility]. tel:[phone] Family History Family Member Type Diagnosis Age At Onset No Information Payers Payer name Insurance type Covered green party ID Authoriza tiarnold(s) [place] [id number] Social History Type Description Quantity Date Captured [...]
[2024-10-30] MEDS: BUPivacaine HCL 0.25% PF 30 ML VIAL (04:59)
--- NOTE | 2024-10-30 05:05 | ED_ITS ---
HPI - General Adult General Chief complaint: Trauma Stated complaint: Fall, wound to forehead, thinners Time Seen by Provider: 10/30/24 02:37 History of Present Illness HPI narrative: This is an 89-year-old female on Coumadin for atrial fibrillation presenting after ground level fall. She was walking into her garage when she tripped striking her head on the ground. She sustained a laceration to her forehead. She did not lose consciousness. She has not had any persistent vomiting. She has not missed any doses of her Coumadin. She is also complaining of left shoulder pain. Related Data Home Medications ?Medication ?Instructions ?Recorded ?Confirmed ?Last Taken ?Type calcium 315 mg (as 1 tablet PO BID 07/14/19 09/08/24 Unknown History citrate)-vitamin D3 6.25 mcg (250 unit) tablet (Citracal + Vitamin D Maximum) cholecalciferol (vitamin D3) 50 2,000 unit PO DAILY 07/14/19 09/08/24 Unknown History mcg (2,000 unit) tablet latanoprost 0.005 % eye drops 1 drop ophthalmic (eye) DAILY 07/14/19 09/08/24 Unknown History metoprolol tartrate 25 mg tablet 12.5 mg PO BID 07/14/19 09/08/24 02/01/20 History multivitamin 1 tablet PO DAILY 07/14/19 09/08/24 Unknown History vitamins A,C,U-unyn-nbkjnv 2,148 1 tablet PO DAILY 03/05/23 09/08/24 Unknown History mcg-113 mg-45 mg-17.4 mg tablet (PreserVision AREDS) quetiapine 25 mg tablet 12.5 mg PO QHS 12/10/23 09/08/24 Unknown History memantine 10 mg tablet mg PO 09/08/24 09/08/24 Unknown History warfarin 4 mg tablet 4 mg PO 5XW 09/08/24 09/08/24 Unknown History warfarin 6 mg tablet 6 mg PO 2XW 09/08/24 09/08/24 Unknown History Allergies Allergy/AdvReac Type Severity Reaction Status Date / Time codeine Allergy Unknown Rash Verified 09/08/24 10:09 ibuprofen AdvReac Unknown Other Verified 09/08/24 10:09 NSAIDS (Non-Steroidal AdvReac Unknown Other Verified 09/08/24 10:09 Anti-Inflamma PMFSH Past Medical History Medical History Glaucoma Cataract Blood clotting disorder 1981 Osteoporosis Osteoarthritis GERD (gastroesophageal reflux disease) History of measles, mumps, or rubella Bone spur Removed from right shoulder 2008 Surgical History Surgical History History of ankle surgery H/O thyroidectomy 1991 H/O breast surgery Lump on left breast removed 1971 History of partial hysterectomy History of tonsillectomy Family History Family History Father Family history of muscular dystrophy Atrial fibrillation Mother CHF (congestive heart failure) Sibling Osteoporosis Macular degeneration disease Social History Social History Social History: caffeine- half a bottle of coke once a day Smoking status: Never smoker Alcohol intake: never Substance use: never Substance use type: does not use Lack of Transportation: No Lack of Food: Never True Current Housing: I Have Housing Concerned About Future Housing: No Difficulty Paying Gas/Electric Bills: No Difficulty Paying for Meds: No Currently Unemployed: No Education: High School Diploma/GED Difficulty w/ Childcare or Family Care: No Gender identity (if verbalized by the patient): Female Exam 2 Narrative: APPEARANCE: No apparent distress. Head: 2 cm jagged laceration to the left forehead EYES: EOMI, NOSE: Atraumatic NECK: Trachea midline RESPIRATORY: No increased rate of breathing CTAB CARDIOVASCULAR: RRR, ABDOMINAL: Non-distended MUSCULOSKELETAl: No obvious deformities NEURO: Alert. Cranial nerves 2-12 grossly intact. Sensation light touch, motor function cerebellar function intact for 4 extremities. Gait exam was normal. SKIN:: Warm, dry. Normal color PSYCHIATRIC: Normal affect Course Vital Signs Vital signs: Vital Signs Temperature 98 F 10/29/24 23:04 Pulse Rate 111 H 10/29/24 23:04 Respiratory Rate 16 10/29/24 23:04 Blood Pressure 147/70 H 10/29/24 23:04 Pulse Oximetry 99 10/29/24 23:04 Oxygen Delivery Room Air 10/29/24 23:04 Temperature 98.2 F 10/30/24 01:48 Pulse Rate 115 H 10/30/24 01:48 Respiratory Rate 16 10/30/24 01:48 Blood Pressure 137/72 10/30/24 01:48 Pulse Oximetry 97 10/30/24 01:48 Oxygen Delivery Room Air 10/29/24 23:04 Procedures Laceration Laceration 1: Date: 10/30/24 Time: 05:16 Site: face Side (If applicable): left Size (cm): 2 Description: irregular Depth: simple, single layer Local Anesthetic: bupivacaine 0.25% Amount of anesthesia used (mL): 4 Pre-repair: irrigated extensively and minor debridement ====== Skin Level ====== Skin layer closed with: nylon Size (cm): 5-0 Number of sutures: 4 Technique: simple, interrupted ====== Subcutaneous Layer ====== ====== Muscle Layer ====== ====== Tendon Layer ====== Medical Decision Making MDM Narrative Medical decision making narrative: -Course: 89-year-old female presenting after ground level fall. Found to have a subarachnoid hemorrhage. Patient has a GCS of 15 and a normal neurologic exam. Blood pressure is at goal. Patient is on Coumadin. Anticoagulation was reversed emergently with vitamin K and K centra. Patient was accepted for transfer at [facility] by Dr. Alamo. Laceration was repaired. -DDX includes but is not limited to: Intracranial hemorrhage, concussion, scalp laceration -Co-morbidities complicating care: AFib on Coumadin, hypertension Vital Signs Vital Signs: Vital Signs Temperature 98 F 10/29/24 23:04 Pulse Rate 111 H 10/29/24 23:04 Respiratory Rate 16 10/29/24 23:04 Blood Pressure 147/70 H 10/29/24 23:04 Pulse Oximetry 99 10/29/24 23:04 Oxygen Delivery Room Air 10/29/24 23:04 Temperature 98.2 F 10/30/24 01:48 Pulse Rate 115 H 10/30/24 01:48 Respiratory Rate 16 10/30/24 01:48 Blood Pressure 137/72 10/30/24 01:48 Pulse Oximetry 97 10/30/24 01:48 Oxygen Delivery Room Air 10/29/24 23:04 Lab Data 10/30/24 05:00 10/30/24 05:00 Labs: Lab Results 04/27/25 Range/Units 05:00 WBC 10.5 H (4.5-10.0) K/mm3 RBC 4.21 (4.2-5.4) M/mm3 Hgb 12.8 (12.0-15.0) g/dL Hct 39.8 (37.0-47.0) % MCV 94.5 (80-100) fl MCH 30.4 (26-34) pg MCHC 32.2 (32-36) g/dl RDW 13.6 (11.5-14.5) % Plt Count 220 (150-375) k/mm3 MPV 9.4 (7.4-10.4) fl Immature Gran % (Auto) 0.3 (0-0.5) % Neut % (Auto) 77.6 H (45.5-73.1) % Lymph % (Auto) 13.9 L (18.3-44.2) % [place] % (Auto) 7.8 (2.6-8.5) % Eos % (Auto) 0.1 (0-4.4) % Baso % (Auto) 0.3 (0.2-1.2) % Lymph # (Auto) 1.45 (0.9-3.2) K/mm3 [place] # (Auto) 0.8 H (0.1-0.6) K/mm3 Eos # (Auto) 0.0 (0-0.3) K/mm3 Baso # (Auto) 0.0 (0.0-0.1) K/mm3 Abs Immat Gran (auto) 0.03 (0.00-0.031) K/mm3 Absolute Neuts (auto) 8.1 H (1.3-6.7) K/mm3 Absolute Nucleated RBC 0.000 (0.0-0.012) K/mm3 Nucleated RBC % 0.0 (0.0-0.2) % PT 26.0 H (11.1-14.7) Seconds INR 2.3 APTT 43.2 H (22.3-36.8) Seconds Sodium 138 (137-145) mmol/L Potassium 3.6 (3.4-5.0) mmol/L Chloride 101 (98-107) mmol/L Carbon Dioxide 29 (22-30) mmol/L Anion Gap 8 (4-12) mmol/L BUN 17 (7-17) mg/dL Creatinine 0.73 (0.7-1.0) mg/dL Estim Creat Clear Calc 32 ml/min Estimated GFR > 60 (59 - ) Glucose 123 H (65-110) mg/dL Calcium 8.9 (8.4-10.2) mg/dL Total Bilirubin 0.7 (0.2-1.3) mg/dL AST 37 H (14-36) U/L ALT 21 (6-35) U/L Alkaline Phosphatase 56 (38-126) U/L Total Protein 7.0 (6.3-8.2) g/dL Albumin 4.2 (3.5-5.1) g/dL Critical Care Time Critical Care Time Critical Care Time: Yes Total Critical Care Time: 35 Discharge Plan Discharge Clinical Impression: Facial laceration, Subarachnoid bleed Patient Disposition: Acute Care Hospital Condition: Critical Patient Language: [place] Prescriptions: No Action latanoprost 0.005 % drops 1 drop EACH EYE DAILY metoprolol tartrate 25 mg tablet 12.5 mg PO BID cholecalciferol (vitamin D3) 2,000 unit tablet 2,000 unit PO DAILY calcium citrate-vitamin D3 [Citracal + D Maximum] 315 mg- 250 unit tablet 1 tablet PO BID multivitamin Tablet 1 tablet PO DAILY warfarin 4 mg tablet 4 mg PO 5XW quetiapine 25 mg tablet 12.5 mg PO QHS PreserVision AREDS 2,148 mcg-113 mg-45 mg-17.4mg tablet 1 tablet PO DAILY warfarin 6 mg tablet 6 mg PO 2XW memantine 10 mg tablet PO lisinopril 5 mg tablet 5 mg PO DAILY Qty: 90 1RF Follow-up/Referrals: Osman Oneil DO [Primary Care Provider] -
--- NOTE | 2024-10-30 05:08 | ECG_ITS ---
Test Date: 2024-10-30 05:25:17 Measurements Intervals [place] Rate: 102 P: 0 DE: 0 QRS: -4 QRSD: 141 T: 97 QT: 376 QTc: 490 Interpretive Statements ATRIAL FLUTTER/TACHYCARDIA WITH RAPID VENTRICULAR RESPONSE LEFT BUNDLE BRANCH BLOCK BASELINE ARTIFACT- I, II, III, AVR, AVL, V4-V6 ABNORMAL ECG No previous ECG available for comparison Electronically Signed On 10-30-2024 07:57:27 CDT by Robb Aaron D.O.
[2024-10-30 05:10] LABS: Basophils Percent Auto 0.3 % (0.2-1.2); Eosinophils Percent Auto 0.1 % (0-4.4); Hematocrit 39.8 % (37.0-47.0); Hemoglobin 12.8 g/dL (12.0-15.0); Immature Granulocyte Absolute 0.03 K/mm3 (0.00-0.031); Immature Granulocyte Percent A 0.3 % (0-0.5); Lymphocytes Absolute Auto 1.45 K/mm3 (0.9-3.2); Lymphocytes Percent Auto 13.9 % (18.3-44.2); Mean Corpuscular HGB Conc 32.2 g/dl (32-36); Mean Corpuscular Hemoglobin 30.4 pg (26-34); Mean Corpuscular Volume 94.5 fl (80-100); Mean Platelet Volume 9.4 fl (7.4-10.4); Monocytes Absolute Auto 0.8 K/mm3 (0.1-0.6); Monocytes Percent Auto 7.8 % (2.6-8.5); Neutrophils Absolute Auto 8.1 K/mm3 (1.3-6.7); Neutrophils Percent Auto 77.6 % (45.5-73.1); Platelet Count Result 220 k/mm3 (150-375); Red Blood Count 4.21 M/mm3 (4.2-5.4); Red Cell Distribution Width 13.6 % (11.5-14.5); White Blood Count 10.5 K/mm3 (4.5-10.0)
[2024-10-30 05:18] LABS: Alanine Aminotransferase 21 U/L (6-35); Albumin Level 4.2 g/dL (3.5-5.1); Alkaline Phosphatase 56 U/L (38-126); Anion Gap 8 mmol/L (4-12); Aspartate Amino Transferase 37 U/L (14-36); Bilirubin,Total 0.7 mg/dL (0.2-1.3); Blood Urea Nitrogen 17 mg/dL (7-17); Calcium 8.9 mg/dL (8.4-10.2); Carbon Dioxide 29 mmol/L (22-30); Chloride 101 mmol/L (98-107); Estimated CRCL calculation 32 ml/min; Estimated Glomerular Filt Rate > 60; Glucose 123 mg/dL (65-110); Potassium 3.6 mmol/L (3.4-5.0); Sodium 138 mmol/L (137-145)
[2024-10-30] MEDS: TETANUS,DIPHTHERIA,AC PERTUSSIS ADULT (0.5 ML) BOOSTRIX IM (05:19)
[2024-10-30 05:20] LABS: INR 2.3
[2024-10-30 05:21] LABS: Partial Thromboplastin Time 43.2 Seconds (22.3-36.8)
[2024-10-30] MEDS: PHYTONADIONE ADULT INJ 10 MG in DEXTROSE 5% IN WATER 50 ML 100 MG IVPB (05:27)
[2024-10-30 05:30] VITALS: BP 143/65; PULSE 97; RESP 16; O2SAT 100
[2024-10-30] MEDS: HUMAN PROTHROMBIN COMPLEX(PCC) 2,000 UNITS in PREMIXIV 0 ML 324 UNITS IV CONT (05:30)
[2024-10-30 06:06] VITALS: BP 143/65; PULSE 97; RESP 16; O2SAT 100
== END 2024-10-30 06:00 | disposition short-term general hospital (02) ==
PROVIDERS: Emergency Provider Emergency Medicine; PCP Internal Medicine
DX: S06.6X0A Traumatic subarachnoid hemorrhage without loss of consciousness, initial encounter (principal); S01.81XA Laceration without foreign body of other part of head, initial encounter; Z23 Encounter for immunization; I48.91 Unspecified atrial fibrillation; H40.9 Unspecified glaucoma; M81.0 Age-related osteoporosis without current pathological fracture; M19.012 Primary osteoarthritis, left shoulder; K21.9 Gastro-esophageal reflux disease without esophagitis; E89.0 Postprocedural hypothyroidism; Z90.711 Acquired absence of uterus with remaining cervical stump; Z79.01 Long term (current) use of anticoagulants; Z79.899 Other long term (current) drug therapy; M47.812 Spondylosis without myelopathy or radiculopathy, cervical region; S43.002A Unspecified subluxation of left shoulder joint, initial encounter; W01.0XXA Fall on same level from slipping, tripping and stumbling without subsequent striking against object, initial encounter
CPT/HCPCS: 12011; 36415; 70450; 72125; 73030; 80053; 85025; 85610; 85730; 90471; 90715; 93005; 96365; 96375; 99285; J3430; J7168